=== PATIENT | male | born 1975 | race Caucasian/White ===

== ENCOUNTER → 2017-06-13 15:03 | Outpatient (CLI) | payer OTHER, SELFPAY ==
--- NOTE | 2017-06-13 15:16 | CA_ITS ---
PROCEDURE: 2-D M-mode and color Doppler study INDICATIONS FOR THE TEST: Chest pain COPD Heart MurmurXX Tobacco Smoking Palpitations Fatigue Syncope Edema HypertensionXDiabetes Mellitus Rheumatic Fever SOB SOTOMAYOR ObesityXHyperlipidemia Family History HD Additional History TDS SECONDARY TO OBESITY PATIENT INFORMATION HEIGHT: 74 WEIGHT:360 GENDER: Male B/P:110/70 2-D/M-MODE INTERPRETATION: 2-D MEASUREMENTS OBSERVED VALUES IN CMS Right Ventricular Dimension (RVDd) 3.3 Interventricular Septum (Thickness)(IVsd) 1.3 Left Ventricular Internal Dimensions(LVIDd) 5.8 Left Ventricular Posterior Wall (Thickness)(LVPWd) 1.3 Aortic Root 4.1 Aortic Cusp Separation 2.0 Left Atrial Dimensions (LAD) 4.2 2D 1. Left atrium is mildly enlarged, left ventricle is normal size, mild concentric left ventricular hypertrophy, visually estimated ejection fraction 55% with no obvious regional wall motion abnormality, septum has sigmoid configuration. 2. The right atrium and right ventricle are mildly enlarged with normal contractility. 3. The aortic valve is minimally thickened and fibrosed with restriction the leaflet mobility. 4. Mitral and tricuspid valve leaflets are minimally thickened. 5. The pulmonic valve is poorly visualized. 6. No significant pericardial effusion noted. DOPPLER INTERROGATION: 1. The maximum aortic out flow velocity recorded study 3 m/s, resulting in a mean gradient across valve of 32 mmHg represents mild aortic stenosis, there is no significant aortic insufficiency seen. 2. The mitral inflow velocity within normal range, there is no mitral stenosis, there is mild mitral regurgitation, grade 1 diastolic dysfunction seen without tissue Doppler evidence of raised left atrial pressure. 3. Mild mitral and tricuspid regurgitation, tricuspid and jet velocity insufficient for calculation of the right ventricular systolic pressure. CONCLUSION: 1. Mildly enlarged left atrium, normal left ventricular size, mild concentric left ventricular hypertrophy, visually estimated ejection fraction of 55% with no obvious regional wall motion abnormality, septum has sigmoid configuration, grade 1 diastolic dysfunction seen without tissue Doppler evidence of raised left atrial pressure. 2. Thickened and calcified aortic valve, mean gradient across valve of 22 mmHg represents mild aortic stenosis, there is no significant aortic insufficiency present. 3. Mild mitral and tricuspid regurgitation. 4. No significant pericardial effusion noted.
== END ==
PROVIDERS: Family Provider Family Medicine; PCP Family Medicine; Visit Provider Family Medicine
DX: R01.1 Cardiac murmur, unspecified (principal)
CPT/HCPCS: 93306

== ENCOUNTER 2019-06-28 20:30 | Inpatient (IN) | payer OTHER, SELFPAY ==
[2019-06-28] VITALS (8 sets, daily range): BP systolic 119–165; BP diastolic 57–91; PULSE 73–104; RESP 18; TEMP 36.8; O2SAT 82–99; BMI 44.3
--- NOTE | 2019-06-28 20:26 | ECG_ITS ---
APPROVED REPORT Exam: Resting ECG HR:102 bpm ECG Measurements Heart Rate 102 AXES SC 142 P 39 QRSd 106 QRS 70 QT 340 T 218 QTc 443 <Conclusion> Sinus tachycardia ST & T wave abnormality, consider inferolateral ischemia Abnormal ECG Electronically signed by : José Antonio Pfeiffer, 06/29/2019 06:18:48
--- NOTE | 2019-06-28 20:45 | CT_ITS ---
PROCEDURE: CT CERVICAL SPINE WO CON Patient Age:43Y CLINICAL INDICATION: syncope/fall patient became dizzy and subsequent syncope while taking walk.. Fell. With minor trauma. Minor injuries COMPARISON: No exams were available for comparison TECHNIQUE: Helical axial images obtained with sagittal and coronal reformats. No IV contrast all CT scans at the facility use one or more dose reduction, viz: automated exposure control, ma/kV adjustment per patient size (including targeted exams where dose is matched to indication, i.e. head), or iterative reconstruction technique. FINDINGS: Cervical spine intact with no fracture or subluxation evident. Normal prevertebral soft tissues.. Normal alignment. Facets, neural foramen and vertebral bodies intact and appears satisfactory... Mild facet arthropathy. Minor cervical spondylosis with suggestion scant hypertrophy and disc prominence posterior left aspect of is C6/7. Also scant uncovertebral joint hypertrophy to the right at is T1/2. Borderline mild disc space narrowing at T1-2, T7/T1 Normal C1/C2 relationships.. But there is persistent segmentation at anterior ring of C1 at midline.-. Mild sclerotic margins support this is a long-term feature does not appear recent or acute radiographically. No prevertebral soft tissue swelling here either Marked thyroid enlargement bilaterally warrants further investigation. Both right and left lobe measure over 6 cm length at and extend inferiorly at least to the level of the sternal notch. The right lobe is larger than the left measuring up to 5.8 cm transverse and over 5 cm AP. The trachea shows only scant if any displacement with both lobes enlarged but perhaps or may be some scant displacement of trachea to the left. Scattered small reactive appearing nodes throughout the neck. No other suspicious masses. IMPRESSION: No acute fracture or subluxation cervical spine. Only very scant minor degenerative changes noted * Prominent Goiter: This prominent enlarged thyroid bilaterally warrants follow-up/and further evaluation Dictated by: Ruben North MD 06/29/2019 09:03 Electronically signed by Ruben North MD in [place] 06/29/2019 09:03
--- NOTE | 2019-06-28 20:45 | CT_ITS ---
PROCEDURE: CT HEAD/BRAIN WO CON Patient Age:43Y CLINICAL INDICATION: Dizzy with subsequent syncope/and fall-fell. No evident significant the head trauma COMPARISON: No exams were available for comparison TECHNIQUE: The the the axial images were obtained. All CT scans at the facility use one or more dose reduction, viz: automated exposure control, ma/kV adjustment per patient size (including targeted exams where dose is matched to indication, i.e. head), or iterative reconstruction technique. FINDINGS: No acute intracranial findings. No intracranial hemorrhage. No hydrocephalus.The ventricles and basal cisterns appear clear and satisfactory. No mass or midline shift nor mass effect. No subdural or extra-axial fluid collection is evident. Posterior fossa unremarkable. Skull intact- calvarium unremarkable appearance. Mastoid air cells are well developed and clear.Nomastoid effusions. Middle ear clear. IAC's symmetric. Paranasal sinus findings: Sphenoid sinus: Mucosal thickening throughout sphenoid sinus most evident inferior right sphenoid. Also possible small air-fluid level at the posterior mid sphenoid sinus (axial/27, 26) Ethmoid air cells: Mucosal thickening with opacification of a few air cells bilaterally. Frontal sinus fairly clear with only scant mucosal thickening Maxillary sinuses: Near 2 cm retention cyst floor of left maxillary sinus. scant mucosal thickening otherwise IMPRESSION: No acute intracranial findings. Brain appears satisfactory/unremarkable noncontrast CT Incidental note of paranasal sinus disease as described in text Of mucosal thickening most evident ethmoid and sphenoid sinuses. The mucosal thickening versus possible small small air-fluid level mid sphenoid sinus noted Dictated by: Ruben North MD 06/29/2019 08:38 Electronically signed by Ruben North MD in [place] 06/29/2019 08:38
--- NOTE | 2019-06-28 20:45 | XR_ITS ---
PROCEDURE: XR CHEST 2V Patient Age:43Y CLINICAL HISTORY: syncope short of breath. Nonsmoker. Prominent goiter/thyromegaly noted on cervical spine CT COMPARISON: CXR CHEST(2 VIEWS-NOT PORTABLE) from 02/10/2015 FINDINGS: The lungs appear clear with nothing definitely acute. No focal infiltrate. No, suspicious nodules,. No pleural effusions. But no pneumothorax The heart appears mildly enlarged the. Upper normal pulmonary vascularity No acute bony abnormalities. Prominent enlarged thyroid noted on CT cervical spine today. On this CXR there is perhaps very subtle slight displacement of the trachea to the left as well as perhaps some very slight additional tapering of the trachea, when compared back to 2014 CXR. This enlarged thyroid warrants follow-up/further investigation including thyroid function studies and thyroid ultrasound IMPRESSION: No acute cardiopulmonary findings . Borderline cardiomegaly. Prominent thyromegaly/prominent goiter which very slightly displaces the trachea to the left. Also perhaps subtle tapering of the tracheal when compared to 2014 CXR This goiter was best seen on the CT cervical spine study. Warrants further investigation Dictated by: Ruben North MD 06/29/2019 09:25 Electronically signed by Ruben North MD in [place] 06/29/2019 09:25
--- NOTE | 2019-06-28 20:45 | XR_ITS ---
PROCEDURE: XR PELVIS 1-2V Patient Age:43Y CLINICAL INDICATION: fall dizzy with syncope and fall. Multiple minor injuries. Prominent goiter noted. COMPARISON: ABDPELW/O CT ABD PELVIS W/O CONTRAST from 04/21/2014 CT HEAD/BRAIN WO CON from 06/28/2019 CT CERVICAL SPINE WO CON from 06/28/2019 TECHNIQUE: XR Pelvis AP View FINDINGS: Osseous pelvis intact with no acute findings. No significant change since CT abdomen pelvis April 2014. No fracture or dislocation is evident. Hip joint spaces are fairly well maintained. There may be some hypertrophic ridging at the superior rim of right acetabulum more so than left but this is stable and minimal. No prominent degenerative change. No lytic or blastic change. The SI joints have an unremarkable appearance. Bones well mineralized of moderate to generous stool at throughout visualized colon. Bladder of moderately distended IMPRESSION: No fracture nor acute findings. Osseous pelvis stable and intact. Dictated by: Ruben North MD 06/29/2019 09:19 Electronically signed by Ruben North MD in [place] 06/29/2019 09:19
--- NOTE | 2019-06-28 20:51 | HMH.EDSYNC ---
ED Disposition Clinical Impression: Non-STEMI (non-ST elevated myocardial infarction), VIRA (obstructive sleep apnea) Syncope Qualifiers: Syncope type: unspecified Qualified Code(s): R55 - Syncope and collapse Aortic stenosis Qualifiers: Cardiac valve disease etiology: etiology unspecified Qualified Code(s): I35.0 - Nonrheumatic aortic (valve) stenosis Obesity Qualifiers: Obesity type: due to excess calories Obesity classification: adult class 3 (BMI >= 40) Serious obesity comorbidity presence: with serious comorbidity Body mass index: BMI 40.0-44.9 Qualified Code(s): E66.01 - Morbid (severe) obesity due to excess calories; Z68.41 - Body mass index (BMI) 40.0-44.9, adult Disposition: Admitted As Inpatient Condition on Discharge: Fair Instructions: DI for Syncope in Adults (Fainting), DI for Syncope in Children (Fainting) Referrals: José Antonio Carmona MD [Primary Care Provider] - - Critical Care Critical Care Time: No Attestation: On 06/28/19, the high probability of a clinically significant, sudden or life threatening deterioration of the following system(s) required my full and direct attention, intervention and personal management. The time I documented below is in addition to time spent performing reported procedures but includes the following listed in this critical care notation. Medical Decision Making - Medical Records Medical records reviewed: Yes: I reviewed the patient's medical records. - Martell Inquiry Pt receiving controlled substance: No Vital Signs: 06/28/19 20:32 06/28/19 20:54 06/28/19 21:57 Temperature 98.3 F Temperature Source Oral Pulse Rate [Right] 104 H 85 83 Respiratory Rate 18 18 18 Blood Pressure [Right Arm] 134/85 119/65 135/89 Blood Pressure Mean [Right Arm] 101 83 104 Blood Pressure Source [Right Arm] Automatic Cuff Blood Pressure Position [Right Arm] Supine 02 Sat by Pulse Oximetry 82 L 99 98 Oxygen Delivery Method Room Air Nasal Cannula Nasal Cannula Oxygen Flow Rate (LPM) 4 4 06/28/19 22:17 06/28/19 22:37 06/28/19 22:47 Temperature Temperature Source Pulse Rate [Right] 84 83 82 Respiratory Rate 18 18 18 Blood Pressure [Right Arm] 129/76 119/57 L 165/91 H Blood Pressure Mean [Right Arm] 93 77 115 Blood Pressure Source [Right Arm] Blood Pressure Position [Right Arm] 02 Sat by Pulse Oximetry 99 98 99 Oxygen Delivery Method Nasal Cannula Nasal Cannula Nasal Cannula Oxygen Flow Rate (LPM) 4 4 4 06/28/19 23:03 06/28/19 23:33 06/29/19 00:03 Temperature Temperature Source Pulse Rate [Right] 81 73 73 Respiratory Rate 18 18 18 Blood Pressure [Right Arm] 149/90 H 129/85 120/58 L Blood Pressure Mean [Right Arm] 109 99 78 Blood Pressure Source [Right Arm] Blood Pressure Position [Right Arm] 02 Sat by Pulse Oximetry 96 98 97 Oxygen Delivery Method Nasal Cannula Nasal Cannula Nasal Cannula Oxygen Flow Rate (LPM) 4 4 4 - Lab Data Lab results reviewed: Yes: I reviewed the patient's lab results. Lab Results 06/28/19 20:35: WBC 8.6, RBC 5.19, Hgb 15.2, Hct 44.7, MCV 86.1, MCH 29.2, MCHC 33.9, RDW 14.1, Plt Count 210, MPV 7.5, Neut % (Auto) 74.5, Lymph % (Auto) 16.3, [place] % (Auto) 6.5, Eos % (Auto) 2.1, Baso % (Auto) 0.6, Neut # (Auto) 6.4, Lymph # (Auto) 1.4, [place] # (Auto) 0.6, Eos # (Auto) 0.2, Baso # (Auto) 0.1, ESR 15 06/28/19 20:35: Sodium 136, Potassium 4.3, Chloride 99, Carbon Dioxide 29, Anion Gap 12.3, BUN 21 H, Creatinine 1.10, Estimated Creat Clear 102, Estimated GFR 73, Est GFR ( Amer) 89, Glucose 137 H, Calcium 10.3 H, Total Bilirubin 0.3, AST 63 H, ALT 61, Alkaline Phosphatase 69, Troponin I 0.31 H, C-Reactive Protein 13.1 H, Total Protein 8.3 H, Albumin 4.8, Globulin 3.5 H, Albumin/Globulin Ratio 1.4 06/28/19 20:53: Specimen Source L radial, O2 % 2lpm, ABG pH 7.42, ABG pCO2 40.3, ABG pO2 102.8 H, ABG HCO3 25.6, ABG Total CO2 26.8, ABG O2 Saturation 98, ABG Base Excess 1.2, Vinayak Test Acceptable Result diagrams: 06/28/19 2
--- NOTE | 2019-06-28 20:53 | PC.NURSE ---
notified RT of ABG order
[2019-06-28 20:56] LABS: Basophils # 0.1 K/mm3 (0-0.2); Basophils % 0.6 % (0.1-2.0); Eosinophils # 0.2 K/mm3 (0.0-0.4); Eosinophils % 2.1 % (0.1-12.0); Hematocrit 44.7 % (42.0-52.0); Hemoglobin 15.2 g/dL (14.1-18.0); Lymphocytes # 1.4 K/mm3 (0.7-4.5); Lymphocytes % 16.3 % (10-50); Mean Corpuscular HGB Conc 33.9 g/dL (31.8-35.4); Mean Corpuscular Hemoglobin 29.2 pg (27.0-31.2); Mean Corpuscular Volume 86.1 fl (80-94); Mean Platelet Volume 7.5 fl (7.4-10.4); Monocytes # 0.6 K/mm3 (0.1-1.0); Monocytes % 6.5 % (1.7-9.3); Neutrophils # 6.4 K/mm3 (1.8-7.8); Neutrophils % 74.5 % (37.0-80.0); Platelet Count 210 K/mm3 (142-424); Red Blood Count 5.19 M/mm3 (4.60-6.20); Red Cell Distribution Width 14.1 % (11.5-17.5); White Blood Count 8.6 K/mm3 (4.8-10.8)
[2019-06-28 21:02] LABS: Alanine Aminotransferase 61 U/L (12-78); Albumin Level 4.8 g/dl (3.5-5.0); Albumin/Globulin Ratio 1.4 (1.1-1.8); Alkaline Phosphatase 69 U/L (38-126); Anion Gap 12.3 mEq/L (5-15); Aspartate Amino Transferase 63 U/L (17-59); Bilirubin,Total 0.3 mg/dl (0.2-1.3); Blood Urea Nitrogen 21 mg/dl (9-20); Calcium 10.3 mg/dl (8.4-10.2); Carbon Dioxide 29 mmol/L (22.0-30.0); Chloride 99 mmol/L (98-107); Creatinine Clearance Estimated 102 mL/min (50-200); Estimated Glomerular Filt Rate 73 ml/min (>60); GFR (African American) 89 ML/MIN (>60); Globulin 3.5 g/dL (1.3-3.2); Glucose 137 mg/dl (74-100); Potassium 4.3 mmoL/L (3.5-5.1); Sodium 136 mmol/L (136-145); Total Protein,Serum 8.3 g/dl (6.3-8.2)
[2019-06-28 21:07] LABS: C-Reactive Protein 13.1 mg/L (0-4)
[2019-06-28 21:12] LABS: ABG Base Excess 1.2 mmol/L (-2.4-2.3); ABG HCO3 25.6 mmhg (22.0-26.0); ABG Oxygen Saturation 98 % (90-100); ABG PCO2 40.3 mmhg (35.0-45.0); ABG PH 7.42 mmol/L (7.35-7.45); ABG PO2 102.8 mmhg (80-100); ABG TCO2 26.8 mmhg (23-27)
--- NOTE | 2019-06-28 21:14 | PC.NURSE ---
Dr Juárez spoke with Dr Truong about pt's EKG and symptoms
[2019-06-28 21:16] LABS: Troponin I 0.31 ng/ml (0.00-0.034)
[2019-06-28 21:18] LABS: Allen's Test ACCEPTABLE; Oxygen 2LPM %; Source L RADIAL
--- NOTE | 2019-06-28 21:20 | CA_ITS ---
APPROVED REPORT EXAM: Comprehensive 2D, Doppler, and color-flow Echocardiogram Unit Assistant: Smitha Avila RT(R) Ht: 6 ft 2 in Wt: 340lbs BSA: 2.72 BP: 126/78 mmHg Indications: syncopal episode, hx of , murmur, palpitations, SOB, obesity, family history of HD 2D Dimensions LVOT 1.78 cm (M/F) 1.5-2.5 M-Mode Dimensions RVDd 2.31 cm (0.9-2.6) LVDd 5.48 cm (3.5-5.7) LVDs 4.40 cm (3.5-5.7) IVSd 0.96 cm (0.6-1.1) PWd 1.29 cm (0.6-1.1) EF (Teich) 40.00% FS 19.70% EDV (Teich) 146.20 mL ESV (Teich) 87.70 mL LV Diastology E/A Ratio 1.40 Aortic Valve LVOT Max 111.00 (70-110 cm/s) LVOT VTI 23.01 cm Mitral Valve MV A Velocity 64.00 (40-130 cm/s) Left Ventricle Left atrium is mildly enlarged, left ventricle is normal size, mild concentric left ventricular hypertrophy, visually estimated ejection fraction 55% with no regional wall motion abnormality. Diastolic parameters are inconclusive. Right Ventricle Right atrium and right ventricular normal size and contractility. Aortic Valve Aortic valve morphology is not well seen, there is calcification of the aortic valve is present, with severe restriction in the leaflet mobility. Morphologically there is severe aortic stenosis, however the mean gradient and aortic outflow velocity is not accurately recorded to calculate aortic valve area accurately. If clinically indicated transesophageal echocardiogram for cardiac cath is recommended. Mitral Valve Mitral valve leaflets are minimally thickened, there is mild mitral calcification, leaflets are not well visualized. There is mild mitral regurgitation. Tricuspid Valve Tricuspid valve is grossly normal, there is mild tricuspid regurgitation. Pulmonic Valve Pulmonic valve is poorly visualized. Great Vessels Aortic root is normal size. Pericardium No significant pericardial effusion noted. Conclusion 1. Technically very difficult study a repeat study due to patient's factors and poor acoustic windows. 2. Mildly enlarged left atrium, normal left ventricular size, mild concentric left ventricular hypertrophy, visually estimated ejection fraction 55% with no regional wall motion abnormality. Diastolic parameters are inconclusive. 3. Morphologically there is severe aortic stenosis as described above, if clinically indicated a transesophageal echocardiogram or cardiac cath is recommended. 4. No significant pericardial effusion noted. Electronically signed by : Eusebio Cordova, 07/01/2019 19:57:06
[2019-06-28 21:22] LABS: Erythrocyte Sedimentation Rate 15 mm/hr (0-15)
--- NOTE | 2019-06-28 21:32 | PC.NURSE ---
pt back from RAD
--- NOTE | 2019-06-28 23:15 | PC.NURSE ---
echo at bedside
[2019-06-29] VITALS (15 sets, daily range): BP systolic 105–148; BP diastolic 58–84; PULSE 60–85; RESP 16–24; TEMP 36.6–37.1; O2SAT 2–100; BMI 44.1
--- NOTE | 2019-06-29 00:14 | PC.NURSE ---
consulting Dr. Pfeiffer
--- NOTE | 2019-06-29 00:44 | PC.NURSE ---
notified of critical trop.
[2019-06-29 00:45] LABS: Troponin I 0.87 ng/ml (0.00-0.034)
[2019-06-29 03:21] LABS: Basophils # 0.1 K/mm3 (0-0.2); Basophils % 0.9 % (0.1-2.0); Eosinophils # 0.2 K/mm3 (0.0-0.4); Eosinophils % 2.8 % (0.1-12.0); Hemoglobin 14.9 g/dL (14.1-18.0); Lymphocytes # 1.4 K/mm3 (0.7-4.5); Lymphocytes % 16.2 % (10-50); Mean Corpuscular HGB Conc 33.9 g/dL (31.8-35.4); Mean Corpuscular Hemoglobin 29.2 pg (27.0-31.2); Mean Platelet Volume 7.3 fl (7.4-10.4); Monocytes # 0.6 K/mm3 (0.1-1.0); Monocytes % 6.7 % (1.7-9.3); Neutrophils # 6.2 K/mm3 (1.8-7.8); Neutrophils % 73.4 % (37.0-80.0); Platelet Count 203 K/mm3 (142-424); Red Blood Count 5.11 M/mm3 (4.60-6.20); Red Cell Distribution Width 14.1 % (11.5-17.5); White Blood Count 8.5 K/mm3 (4.8-10.8)
[2019-06-29 03:29] LABS: Anion Gap 11.2 mEq/L (5-15); Blood Urea Nitrogen 17 mg/dl (9-20); Calcium 9.9 mg/dl (8.4-10.2); Carbon Dioxide 29 mmol/L (22.0-30.0); Chloride 100 mmol/L (98-107); Chol/HDL Ratio 5.1 (1-3.5); Cholesterol 189 mg/dl (140-200); Creatinine Clearance Estimated 124 mL/min (50-200); Estimated Glomerular Filt Rate 93 ml/min (>60); GFR (African American) 112 ML/MIN (>60); Glucose 141 mg/dl (74-100); HDL Cholesterol 37 mg/dl (40-60); Potassium 4.2 mmoL/L (3.5-5.1); Prothrombin Time 11.4 seconds (9.4-11.8); Sodium 136 mmol/L (136-145); Triglycerides 131 mg/dl (30-150); VLDL Cholesterol 26 mg/dL (0-40)
[2019-06-29 03:40] LABS: Direct LDL Cholesterol 144.39 mg/dL (100-129)
[2019-06-29 03:45] LABS: Troponin I 0.68 ng/ml (0.00-0.034)
--- NOTE | 2019-06-29 03:53 | PC.NURSE ---
Pt has ambulated to the BR 1x this shift with staff SBA and pt tolerated well. Pt has denied any pain, N/V/D, or dyspnea t/o shift. Pt continues on 2L per NC while awake and CPAP for sleep and tolerating well, sats 96-98%. Lungs CTA, although diminished bases and left anterior. ABD is soft and non-tender with active BS. Pt has been NPO since 12am per order. NSR with occasional PACs and ST depression noted on tele. Systolic murmur noted on auscultation. VSS, call light within reach, will continue to monitor.
--- NOTE | 2019-06-29 04:42 | PC.NURSE ---
Lab notified this RN @ [id number] of critical troponin of 0.68. Notified Dr. Pfeiffer @ [phone], no new orders at this time.
--- NOTE | 2019-06-29 06:37 | PC.NURSE ---
Pt has showered and bee surgically clipped in preparation for possible cardiac cath. Per ER report and per pt & his , Dr. Juárez stated Dr. Truong wanted pt to have a heart cath today.
--- NOTE | 2019-06-29 08:16 | HMH.HP ---
*Admission Date: 06/29/19 *Chief complaint: Syncope, shortness of breath *History of present illness: 43-year-old male with history of mild aortic stenosis on echocardiogram in June 2017 as well as hypertension presented to the emergency department after syncopal event. Patient was walking with his family when it began raining. Patient decided to run back to his house. Patient is morbidly obese and became short of breath while running. He also developed a fluttering sensation in his chest. He sat down to rest. Once he felt like he was catching his breath he stood up from a seated position and passed out. Patient does not know how long he was unconscious. He remembers awakening and finding himself on the ground. It was at this time that EMS was called and patient was brought to the emergency department. In the emergency department patient underwent work-up. EKG showed some inverted T waves in lateral leads. First troponin was indeterminate but second troponin was abnormal. Patient had an echocardiogram performed in the emergency department which is been interpreted as showing severe aortic stenosis. ER physician spoke with Dr. Truong who recommended patient be admitted to the hospital for observation and cardiac catheterization this morning. At present patient denies shortness of breath or chest pain. He denies shortness of breath on exertion in the hospital. He does report over the last several weeks he is noticed a decline in his functional capacity and has been getting short of breath easier when ambulating distances or up and down stairs. He has also been experiencing this intermittent fluttering sensation in his chest but denies chest tightness or chest pain. [facility] History I have reviewed the patient's past medical history: Yes Medical History: Reports:: Hypertension, Valvular Heart Disease (Aortic stenosis) Denies:: Cancer, Diabetes Mellitus Type 1, Diabetes Mellitus Type 2 *Have you ever received a pneumonia vaccine?: No *Have you received a flu vaccine this season?: Yes Comment:: Obstructive sleep apnea Other Surgeries: Yes: Colon Resection, Other Amputation: No Fractures: No - *Social History Educational Level: Completed High School Smoking Status: Former smoker #Yrs smoked (if former smoker): 5 Alcohol Intake: current Alcohol Intake Frequency:: a few times a month *Occupational Status:: employed Housing: house Household Members: spouse *Travel in the last 8 weeks: None Family Hx:: Coronary Artery Disease, Diabetes, Hypertension Review of Systems - Review of Systems Review of systems:: pertinent systems reviewed and negative unless documented below - Constitutional Denies body ache(s), Denies chills, Denies fever(s), Denies headache(s), Denies night sweats - *Cardiovascular Reports shortness of breath with activity, Denies chest pain, Denies chest pain at rest, Denies chest pain with activity, Denies excessive sweating, Denies shortness of breath when lying down - *Respiratory Reports shortness of breath with activity, Denies change in phlegm color, Denies chest congestion, Denies cough, Denies excessive phlegm production - *Neurologic Reports seizure-like activity, Reports fainting, Denies confusion, Denies localized weakness Meds Home Medications Medication Instructions Recorded Confirmed Type lisinopriL [Lisinopril 20mg Tab] 20 mg PO DAILY 06/28/19 06/29/19 History Allergies Allergy/AdvReac Type Severity Reaction Status Date / Time No Known Allergies Allergy Unverified 01/31/17 14:32 Exam Vital signs and Labs for Last 24 Hours: Temp Pulse Resp BP Pulse Ox 98.0 F 60 16 123/76 100 06/29/19 03:44 06/29/19 04:00 06/29/19 03:44 06/29/19 03:44 06/29/19 03:44 Laboratory Results - last 24 hr 06/28/19 20:35: WBC 8.6, RBC 5.19, Hgb 15.2, Hct 44.7, MCV 86.1, MCH 29.2, MCHC 33.9, RDW 14.1, Plt Count 210, MPV 7.5, Neut % (Auto) 74.5, Lymph % (Auto) 16.3, [place] % (Auto) 6.5, Eos % (Aut
--- NOTE | 2019-06-29 08:33 | PC.NURSE ---
Pt took o2 off for shower, room air sat obtained and was 95%. Pt was reassessed 15 min later, was found asleep in chair and room air sat was 89% that qumahendray raised to 95% while awae. Pt has VIRA and was not using his CPAP d/t sitting in the watching TV and just fell asleep
--- NOTE | 2019-06-29 08:43 | PC.NURSE ---
Spoke to admitting Dr. Pfeiffer who states Dr. Juárez informed him Dr. Quinn would be performing a heart cath today. Spoke to Dr. Quinn at this time. He states he is oncall for ER stemi only. Then paged Dr. Truong who requested to speak with pts primary nurse.
--- NOTE | 2019-06-29 11:39 | HMH.PHAVTE ---
[facility] Pharmacy VTE Monitoring - Patient Demographics Admission date: 06/29/19 Report Date: 06/29/19 Time: 11:40 Allergies/Adverse Reactions: Patient Allergies No Known Allergies Allergy (Unverified 01/31/17 14:32) Height: 1.88 m Weight: 156.234 kg Patient Problems: Current Active Problems Syncope (Acute) Non-STEMI (non-ST elevated myocardial infarction) (Acute) Aortic stenosis (Acute) Obesity (Acute) VIRA (obstructive sleep apnea) (Acute) Essential hypertension (Acute) - VTE Risk Labs: VTE Related Lab Results Hgb 14.9 g/dL (14.1-18.0) 06/29/19 03:15 Hct 44.0 % (42.0-52.0) 06/29/19 03:15 Plt Count 203 K/mm3 (142-424) 06/29/19 03:15 PT 11.4 seconds (9.4-11.8) 06/29/19 03:15 INR 1.10 (0.9-1.1) 06/29/19 03:15 BUN 17 mg/dl (9-20) 06/29/19 03:15 Creatinine 0.90 mg/dl (0.66-1.25) 06/29/19 03:15 Estimated Creat Clear 124 mL/min (50-200) 06/29/19 03:15 VTE Score: 5 VTE Risk Level: Low Risk - Prophylaxis VTE Prophylaxis Ordered?: Yes Types of VTE Prophylaxis: Pharmacological Pharmacologic Type: Enoxaparin
--- NOTE | 2019-06-29 16:22 | PC.NURSE ---
Pt has been pleasant and cooperative this shift with no complaints of pain or SOA. A&O X4. Pt has been up to the chair for the majority of this shift. Pt ambulates throughout the room and to the bathroom independently. Pt is currently on RA with sats >94%. IVF DC'd this shift and 20 G peripheral IV in the RT AC is SL. Diet changed to Cardiac. Telemetry reveals NSR with ST Depression. Lungs CTA. VSS. Call light within reach. Will continue to monitor.
[2019-06-30] VITALS (9 sets, daily range): BP systolic 98–114; BP diastolic 58–69; PULSE 60–79; RESP 16–24; TEMP 36.6–37.1; O2SAT 96–98; BMI 44.5
--- NOTE | 2019-06-30 03:44 | PC.NURSE ---
Pt has had no complaints reported to staff this shift. HE has ambulated in hallway independently w/ mask in place. Tolerated well. Voiding w/o issues. Remains in RA w/ sats in upper 90's. CPAP in place when sleeping. Tele monitor showing NSR w/ ST depression, no change from previous readings. VSS.
--- NOTE | 2019-06-30 08:01 | HMH.ACPN2 ---
Internal Medicine - PN: Subj *Date: 06/30/19 *Time: 08:02 Interval history: Patient has no complaints this morning. He denies chest pain or shortness of breath with exertion here in the hospital. Arrangements have been made for patient to have left heart catheterization tomorrow to assess coronary arteries and his aortic valve. Exam Vital signs and Labs for Last 24 Hours: Temp Pulse Resp BP Pulse Ox 98.2 F 67 18 98/61 L 96 06/30/19 04:00 06/30/19 04:00 06/29/19 23:37 06/30/19 04:00 06/30/19 04:00 I & O for Last 24 hours: Intake & Output 06/27/19 06/28/19 06/29/19 06/30/19 11:59 11:59 11:59 11:59 Intake Total 2383 / 2383 1080 / 1080 Output Total 900 / 900 Balance 1483 / 1483 1080 / 1080 Weight 344 lb 7 oz 347 lb 4 oz - Constitutional no acute distress Assessment and Plan (1) Syncope Current visit: Yes Status: Acute Qualifiers: Syncope type: unspecified Qualified Code(s): R55 - Syncope and collapse Category: Medical Code(s): R55 - Syncope and collapse (2) Essential hypertension Current visit: Yes Status: Acute Category: Medical Code(s): I10 - Essential (primary) hypertension (3) Aortic stenosis Current visit: Yes Status: Acute Qualifiers: Cardiac valve disease etiology: etiology unspecified Qualified Code(s): I35.0 - Nonrheumatic aortic (valve) stenosis Category: Medical Code(s): I35.0 - Nonrheumatic aortic (valve) stenosis (4) Non-STEMI (non-ST elevated myocardial infarction) Current visit: Yes Status: Acute Category: Medical Code(s): I21.4 - Non-ST elevation (NSTEMI) myocardial infarction (5) VIRA (obstructive sleep apnea) Current visit: Yes Status: Acute Category: Medical Code(s): G47.33 - Obstructive sleep apnea (adult) (pediatric) (6) Obesity Current visit: Yes Status: Acute Qualifiers: Obesity type: due to excess calories Obesity classification: adult class 3 (BMI >= 40) Serious obesity comorbidity presence: with serious comorbidity Body mass index: BMI 40.0-44.9 Qualified Code(s): E66.01 - Morbid (severe) obesity due to excess calories; Z68.41 - Body mass index (BMI) 40.0-44.9, adult Category: Medical Code(s): E66.9 - Obesity, unspecified - Assessment and plan all Dx Assessment and Plan for all problems:: 1. Continue telemetry monitoring. Continue aspirin and Lovenox. Left heart cath tomorrow
--- NOTE | 2019-06-30 18:34 | PC.NURSE ---
Pt has been pleasant and cooperative this shift. A&O X4. No complaints of pain or SOA. Pt ambulates independently throughout the room and to the bathroom. 20 G peripheral IV in place to the RT AC is patent and SL. Telemetry reveals NSR with ST depression. Lungs CTA. VSS. Call light within reach. Will continue to monitor.
[2019-07-01] VITALS (21 sets, daily range): BP systolic 98–132; BP diastolic 54–79; PULSE 60–86; RESP 12–20; TEMP 36.3–36.8; O2SAT 91–98; BMI 44.7
--- NOTE | 2019-07-01 | IR_ITS ---
APPROVED REPORT Patient Location: Inpatient Purchasing Coordinator: HENRIQUE An RT (R) PROCEDURES Selective coronary angiogram INDICATION Severe aortic stenosis, Acute non-ST elevation myocardial infarction, Preoperative evaluation for aortic valve replacement Informed consent was obtained prior to the procedure. COMPLICATIONS NONE Estimated Blood Loss: LESS THAN 10 ML TECHNIQUE One percent lidocaine used to anesthetize the right anterior aspect of the wrist. The right radial artery was accessed via the Seldinger technique. A 6 [place] sheath was placed in the right radial artery. 2.5 mg of verapamil, 800 mcg of nitroglycerin, 1mg Lidocaine and 5000 U Heparin were given through the arterial sheath. The trap catheter was also used to perform left heart catheterization, left ventriculogram and selective coronary angiogram. At the end of the procedure the sheath was removed good hemostasis was achieved using Traclet band, patient was transferred to the postop holding area in stable condition. ANGIOGRAPHIC RESULTS The left main artery Normal The left anterior descending artery Normal The circumflex artery Small normal The right coronary artery Large dominant normal The JARRETT ventriculogram reveals Not obtained The left ventricular end-diastolic pressure Not measured IMPRESSION Normal coronary arteries in the setting of known severe aortic stenosis PLAN 1. Transfer to [facility] for either surgical or percutaneous aortic valve replacement, to be decided by the physicians at [facility] 2. Patient requires transfer during this admission Electronically signed by : Kirill Truong, 07/01/2019 10:22:27
--- NOTE | 2019-07-01 05:26 | PC.NURSE ---
No changes over night. Pt trimmed and showered for possible heart cath in am. No complaints reported this shift. Tele reads NSR w/ ST depression. Pt is independent w/ ADL's ad ambulates often in room. Home CPAP worn w/ sleeping. Pt has been NPO since 0000. Will continue to monitor.
--- NOTE | 2019-07-01 07:12 | HMH.ACPN2 ---
Internal Medicine - PN: Subj *Date: 07/01/19 *Time: 07:12 Interval history: Patient has no complaints this morning. He denies any further chest pain, dyspnea at rest, or dyspnea on exertion. Exam Vital signs and Labs for Last 24 Hours: Temp Pulse Resp BP Pulse Ox 97.8 F 63 20 105/75 L 97 07/01/19 04:00 07/01/19 04:00 07/01/19 04:00 07/01/19 04:00 07/01/19 04:00 I & O for Last 24 hours: Intake & Output 06/28/19 06/29/19 06/30/19 07/01/19 11:59 11:59 11:59 11:59 Intake Total 2383 / 2383 1440 / 1440 240 / 240 Output Total 900 / 900 Balance 1483 / 1483 1440 / 1440 240 / 240 Weight 344 lb 7 oz 347 lb 4 oz 348 lb 8 oz Narrative: Patient is in no distress. Lungs remain clear. Heart has a regular rate and rhythm with systolic murmur at the right second costal space that radiates to the carotids. Assessment and Plan (1) Syncope Current visit: Yes Status: Acute Qualifiers: Syncope type: unspecified Qualified Code(s): R55 - Syncope and collapse Category: Medical Code(s): R55 - Syncope and collapse (2) Essential hypertension Current visit: Yes Status: Acute Category: Medical Code(s): I10 - Essential (primary) hypertension (3) Aortic stenosis Current visit: Yes Status: Acute Qualifiers: Cardiac valve disease etiology: etiology unspecified Qualified Code(s): I35.0 - Nonrheumatic aortic (valve) stenosis Category: Medical Code(s): I35.0 - Nonrheumatic aortic (valve) stenosis (4) Non-STEMI (non-ST elevated myocardial infarction) Current visit: Yes Status: Acute Category: Medical Code(s): I21.4 - Non-ST elevation (NSTEMI) myocardial infarction (5) VIRA (obstructive sleep apnea) Current visit: Yes Status: Acute Category: Medical Code(s): G47.33 - Obstructive sleep apnea (adult) (pediatric) (6) Obesity Current visit: Yes Status: Acute Qualifiers: Obesity type: due to excess calories Obesity classification: adult class 3 (BMI >= 40) Serious obesity comorbidity presence: with serious comorbidity Body mass index: BMI 40.0-44.9 Qualified Code(s): E66.01 - Morbid (severe) obesity due to excess calories; Z68.41 - Body mass index (BMI) 40.0-44.9, adult Category: Medical Code(s): E66.9 - Obesity, unspecified - Assessment and plan all Dx Assessment and Plan for all problems:: 1. Left heart catheterization today
--- NOTE | 2019-07-01 07:16 | HMH.CNCARD ---
History of Present Illness Consult date: 07/01/19 Requesting physician: José Antonio Carmona Chief complaint: syncope Additional Medical History:: 1. Hypertension 2. Obstructive sleep apnea, treated with CPAP for 3 to 4 years 3. Obesity 4. History of mild aortic stenosis by echocardiogram 03/2017 with normal ejection fraction. 5. Family history of coronary artery disease and arrhythmias in parents History of present illness: 43-year-old white male with history of hypertension, VIRA and mild aortic stenosis by echocardiogram in 2018 presented to the emergency department for evaluation of shortness of breath, palpitations and syncopal episode. While out walking with his family, he began to rain and due to him being close to home he decided to run home. Patient noticed palpitations and shortness of breath and sat down on his porch for a few minutes together his breath. He continued to be short of breath with rapid heart rates and after talking with his decided to come to the emergency department. After standing up to walk to the car patient walks only a few feet before leaning up against a post and then passing out. Patient woke up on the ground. He denied any chest pain, pressure or tightness. EMS was called to transport the patient to the emergency department for further evaluation. EKG in the ER showed sinus rhythm at a rate of [address] segment depression. Echocardiogram performed in the ER appeared to show evidence of severe aortic stenosis. Patient was kept for further evaluation. Initial troponin indeterminate but subsequent troponins have been elevated. Patient denies any chest pain, pressure or tightness during his stay and no further episodes of syncope. Dr. Truong was contacted and recommended admission with further evaluation. Patient does relate some increasing shortness of breath with exertion over the last several months without change in weight. He does not smoke and is not diabetic. There is a family history of heart disease in his mother with history of stents in his father with history of arrhythmia. Cardiology consulted for evaluation recommendations. [facility] History Medical History: Reports:: Hypertension, Valvular Heart Disease (Aortic stenosis) Denies:: Cancer, Diabetes Mellitus Type 1, Diabetes Mellitus Type 2 *Have you ever received a pneumonia vaccine?: No *Have you received a flu vaccine this season?: Yes Other Surgeries: Yes: Colon Resection, Other Amputation: No Fractures: No - *Social History Educational Level: Completed High School Smoking Status: Former smoker #Yrs smoked (if former smoker): 5 Alcohol Intake: current Alcohol Intake Frequency:: a few times a month *Occupational Status:: employed Housing: house Household Members: spouse *Travel in the last 8 weeks: None Family Hx:: Coronary Artery Disease, Diabetes, Hypertension Meds Home Medications Medication Instructions Recorded Confirmed Type lisinopriL [Lisinopril 20mg Tab] 20 mg PO DAILY 06/28/19 06/29/19 History Allergies Allergy/AdvReac Type Severity Reaction Status Date / Time No Known Allergies Allergy Unverified 01/31/17 14:32 Review of Systems - Review of Systems Review of systems:: pertinent systems reviewed and negative unless documented below - *Cardiovascular Reports shortness of breath with activity, Denies chest pain - *Respiratory Reports shortness of breath with activity, Denies cough - *Gastrointestinal Denies loose stools, Denies nausea, Denies vomiting - *Genitourinary Denies blood in urine - *Musculoskeletal Denies joint pain, Denies back pain - *Neurologic Reports seizure-like activity, Reports fainting, Denies confusion, Denies localized weakness, Denies headache(s) Exam Vital signs and Labs for Last 24 Hours: Temp Pulse Resp BP Pulse Ox 97.8 F 63 20 105/75 L 97 07/01/19 04:00 07/01/19 04:00 07/01/19 04:00 07/01/19 04:00 07/01/19 04:00 I &
--- NOTE | 2019-07-01 07:23 | ECG_ITS ---
APPROVED REPORT Exam: Resting ECG HR:70 bpm ECG Measurements Heart Rate 70 AXES DE 164 P 57 QRSd 108 QRS 84 QT 408 T 252 QTc 440 <Conclusion> Normal sinus rhythm ST & T wave abnormality, consider inferolateral ischemia Abnormal ECG Electronically signed by : José Antonio Pfeiffer, 07/01/2019 14:14:52
--- NOTE | 2019-07-01 10:22 | HMH.DCSUM ---
General - General Admission date:: 06/29/19 Discharge date: 07/01/19 HPI HPI: 43-year-old male with history of mild aortic stenosis on echocardiogram in June 2017 as well as hypertension presented to the emergency department after syncopal event. Patient was walking with his family when it began raining. Patient decided to run back to his house. Patient is morbidly obese and became short of breath while running. He also developed a fluttering sensation in his chest. He sat down to rest. Once he felt like he was catching his breath he stood up from a seated position and passed out. Patient does not know how long he was unconscious. He remembers awakening and finding himself on the ground. It was at this time that EMS was called and patient was brought to the emergency department. In the emergency department patient underwent work-up. EKG showed some inverted T waves in lateral leads. First troponin was indeterminate but second troponin was abnormal. Patient had an echocardiogram performed in the emergency department which is been interpreted as showing severe aortic stenosis. ER physician spoke with Dr. Truong who recommended patient be admitted to the hospital for observation and cardiac catheterization this morning. At present patient denies shortness of breath or chest pain. He denies shortness of breath on exertion in the hospital. He does report over the last several weeks he is noticed a decline in his functional capacity and has been getting short of breath easier when ambulating distances or up and down stairs. He has also been experiencing this intermittent fluttering sensation in his chest but denies chest tightness or chest pain. Hospital Course Hospital Course: Patient was admitted for further cardiac evaluation to include a LHC. On 06/30 patient underwent LHC which revealed normal coronary arteries and confirmed severe aortic stenosis. spoke with DR. Tobin of the [facility] surgery service and the patietn was accepted for transfer. Dishcarge condition is stable Objective Vital signs: Temp Pulse Resp BP Pulse Ox 97.7 F 79 18 132/71 93 L 07/01/19 07:50 07/01/19 10:20 07/01/19 10:20 07/01/19 10:20 07/01/19 10:20 DS: Diagnosis - Discharge Diagnosis (1) Syncope Status: Acute (2) Essential hypertension Status: Acute (3) Aortic stenosis Status: Acute (4) Non-STEMI (non-ST elevated myocardial infarction) Status: Acute (5) VIRA (obstructive sleep apnea) Status: Acute (6) Obesity Status: Acute Discharge Plan - Patient Discharge Instructions ACTIVITY: Continue current activity DIET: continue same diet Patient Instructions: DI for Syncope in Adults (Fainting), DI for Heart Attack, Sleep Apnea - Follow up Plan Home Medications: Home Medications Medication Instructions Recorded Confirmed Type lisinopriL [Lisinopril 20mg Tab] 20 mg PO DAILY 06/28/19 06/29/19 History Prescriptions/Medication Reconciliation: Continued lisinopriL [Lisinopril 20mg Tab] 20 mg PO DAILY - Problem Reconciliation Problems Reviewed?: Yes
== END 2019-07-01 16:15 | disposition short-term general hospital (02) | DRG 281 ==
LOC: ER 06-29 00:26 → 2ND 06-29 10:25
PROVIDERS: Internal Medicine; Admitting Provider Internal Medicine Adolescent Medicine; Emergency Provider Emergency Medicine; PCP Family Medicine; Visit Provider Family Medicine
PROC: 4A023N7 Measurement of Cardiac Sampling and Pressure, Left Heart, Percutaneous Approach (ICD-10-PCS; principal; 2019-07-01 11:00)
DX: I35.0 Nonrheumatic aortic (valve) stenosis (principal); I21.4 Non-ST elevation (NSTEMI) myocardial infarction; Z68.41 Body mass index [BMI] 40.0-44.9, adult; I10 Essential (primary) hypertension; E66.01 Morbid (severe) obesity due to excess calories; Z87.891 Personal history of nicotine dependence
CPT/HCPCS: 36415; 70450; 71046; 72125; 72170; 80048; 80053; 80061; 82803; 83735; 84484; 85025; 85610; 85651; 86140; 93005; 93306; 93458; 96365; 99152; 99285; C1725; C1760; C1769; J1644; Q9967

== ENCOUNTER 2019-07-14 11:41 | Emergency (ER) | payer OTHER, SELFPAY ==
[2019-07-14 11:41] VITALS: BP 118/78; PULSE 150; RESP 22; TEMP 36.9; O2SAT 99; BMI 44.0
--- NOTE | 2019-07-14 11:41 | ECG_ITS ---
APPROVED REPORT Exam: Resting ECG HR:149 bpm ECG Measurements Heart Rate 149 AXES CO 124 P 11 QRSd 94 QRS 58 QT 250 T 221 QTc 393 <Conclusion> Sinus tachycardia ST & T wave abnormality, consider inferolateral ischemia Abnormal ECG Electronically signed by : José Antonio Pfeiffer, 07/15/2019 07:15:32
--- NOTE | 2019-07-14 12:01 | CT_ITS ---
PROCEDURE: CT ANGIO CHEST CLINCIAL INDICATION: RECENT HEART SURGERY, SOA, ELEVATED HR Shortness of breath, elevated heart rate COMPARISON: XR CHEST 2V from 07/14/2019 TECHNIQUE: IV Contrast: 70ML OPTIRAY 350 Axial images obtained with sagittal and coronal reformats. All CT scans at the facility use one or more dose reduction, viz: automated exposure control, ma/kV adjustment per patient size (including targeted exams where dose is matched to indication, i.e. head), or iterative reconstruction technique. FINDINGS: There is diffuse enlargement of the thyroid gland on both sides with mild substernal extension on the right. There is narrowing of the trachea due to the enlarged thyroid gland. There are post median sternotomy changes with increased density within the anterior mediastinal fat which may be seen with post sternotomy changes. Increased soft tissue density is present in the retrosternal region suggesting small hematoma. This extends to the level just below the xiphoid and to the left of the the subxiphoid region. There is moderate thickening of the pericardium measuring up to 2.4 cm consistent with pericardial effusion. Aortic valve is present.. No evidence of central pulmonary embolus. The peripheral pulmonary arteries are not well opacified. No obvious emboli are evident. There is small size of the left main pulmonary artery compared to the right side of questionable clinical significance. There is no evidence of aortic aneurysm or dissection There are small bilateral pleural effusions left larger than right. Moderate atelectatic changes/volume loss noted in the left lower lobe. There are mild atelectatic changes in the right lower lobe. The upper lobes are clear. No evidence of pneumothorax. There are degenerative changes in the thoracic spine with kyphosis of the lower thoracic spine. No evidence of sternal dehiscence. There is bilateral gynecomastia and there is mild stranding of the presternal fat from the recent surgery. Upper abdominal images show cholelithiasis. IMPRESSION: 1. No evidence of pulmonary embolus, aortic aneurysm or dissection. 2. Status post aortic valve replacement. There is a moderate-sized pericardial effusion 3. Post median sternotomy changes with some increased density in the anterior mediastinum and in the retrosternal extending to the sub xiphoid area consistent with small hematoma. 4. Bilateral pleural effusions and bibasilar volume loss left greater than right 5. Cholelithiasis Dictated by: Vinayak Bradford MD 07/14/2019 13:04 Electronically signed by Vinayak Bradford MD in [facility] 07/14/2019 13:04
--- NOTE | 2019-07-14 12:01 | XR_ITS ---
PROCEDURE: XR CHEST 2V CLINICAL HISTORY: RECENT HEART SURGERY, ELEVATED HR, SOA COMPARISON: CXR CHEST(2 VIEWS-NOT PORTABLE) from 02/10/2015 XR CHEST 2V from 06/28/2019 FINDINGS: Mild cardiomegaly without failure. Prior median sternotomy. Prior AVR Small bilateral pleural effusions with mild left basilar airspace disease. No evidence of pneumothorax. Degenerative changes thoracic spine with kyphosis IMPRESSION: Postsurgical change with cardiomegaly, bilateral pleural effusions and left basilar airspace disease Dictated by: Vinayak Bradford MD 07/14/2019 13:05 Electronically signed by Vinayak Bradford MD in [facility] 07/14/2019 13:05
[2019-07-14 12:13] LABS: Basophils # 0.2 K/mm3 (0-0.2); Basophils % 1.8 % (0.1-2.0); Eosinophils # 0.2 K/mm3 (0.0-0.4); Eosinophils % 1.6 % (0.1-12.0); Hematocrit 36.8 % (42.0-52.0); Hemoglobin 12.3 g/dL (14.1-18.0); Lymphocytes # 1.4 K/mm3 (0.7-4.5); Lymphocytes % 12.7 % (10-50); Mean Corpuscular HGB Conc 33.5 g/dL (31.8-35.4); Mean Corpuscular Hemoglobin 30.4 pg (27.0-31.2); Mean Corpuscular Volume 90.7 fl (80-94); Mean Platelet Volume 7.2 fl (7.4-10.4); Monocytes # 0.4 K/mm3 (0.1-1.0); Monocytes % 3.8 % (1.7-9.3); Neutrophils # 8.8 K/mm3 (1.8-7.8); Neutrophils % 80.1 % (37.0-80.0); Platelet Count 451 K/mm3 (142-424); Red Blood Count 4.06 M/mm3 (4.60-6.20); Red Cell Distribution Width 14.4 % (11.5-17.5)
[2019-07-14 12:14] LABS: Chloride 99 mmol/L (98-107); Potassium 3.9 mmoL/L (3.5-5.1); Sodium 135 mmol/L (136-145)
[2019-07-14 12:17] LABS: Anion Gap 11.9 mEq/L (5-15); Blood Urea Nitrogen 11 mg/dl (9-20); Calcium 9.2 mg/dl (8.4-10.2); Carbon Dioxide 28 mmol/L (22.0-30.0); Creatinine Clearance Estimated 140 mL/min (50-200); Estimated Glomerular Filt Rate 106 ml/min (>60); GFR (African American) 128 ML/MIN (>60); Glucose 205 mg/dl (74-100)
[2019-07-14 12:31] LABS: Troponin I 0.07 ng/ml (0.00-0.034)
--- NOTE | 2019-07-14 12:48 | HMH.EDARPALP ---
ED Disposition Clinical Impression: Pericardial effusion Atrial flutter Qualifiers: Atrial flutter type: unspecified Qualified Code(s): I48.92 - Unspecified atrial flutter Disposition: Xfer Short-Term Hosp Condition on Discharge: Fair Referrals: José Antonio Carmona MD [Primary Care Provider] - - Critical Care Critical Care Time: No Attestation: On 07/14/19, the high probability of a clinically significant, sudden or life threatening deterioration of the following system(s) required my full and direct attention, intervention and personal management. The time I documented below is in addition to time spent performing reported procedures but includes the following listed in this critical care notation. Medical Decision Making - Medical Records Medical records reviewed: Yes: I reviewed the patient's medical records. - Martell Inquiry Pt receiving controlled substance: No Vital Signs: 07/14/19 11:41 Temperature 98.5 F Temperature Source Oral Pulse Rate [Right Radial] 150 H Respiratory Rate 22 Blood Pressure [Right Arm] 118/78 Blood Pressure Mean [Right Arm] 91 Blood Pressure Source [Right Arm] Automatic Cuff Blood Pressure Position [Right Arm] Sitting 02 Sat by Pulse Oximetry 99 Oxygen Delivery Method Room Air - Lab Data Lab results reviewed: Yes: I reviewed the patient's lab results. Lab Results 07/14/19 11:50: WBC 11.0 H, RBC 4.06 L, Hgb 12.3 L, Hct 36.8 L, MCV 90.7, MCH 30.4, MCHC 33.5, RDW 14.4, Plt Count 451 H, MPV 7.2 L, Neut % (Auto) 80.1 H, Lymph % (Auto) 12.7, [place] % (Auto) 3.8, Eos % (Auto) 1.6, Baso % (Auto) 1.8, Neut # (Auto) 8.8 H, Lymph # (Auto) 1.4, [place] # (Auto) 0.4, Eos # (Auto) 0.2, Baso # (Auto) 0.2 07/14/19 11:50: Sodium 135 L, Potassium 3.9, Chloride 99, Carbon Dioxide 28, Anion Gap 11.9, BUN 11, Creatinine 0.80, Estimated Creat Clear 140, Estimated GFR 106, Est GFR ( Amer) 128, Glucose 205 H, Calcium 9.2, Troponin I 0.07 H Result diagrams: 07/14/19 11:50 07/14/19 11:50 Orders (Tests/Meds): ED MEDICATIONS Discontinued Medications Generic Name Dose Route Start Last Admin Trade Name Gloria PRN Reason Stop Dose Admin Ioversol 70 ml 07/14/19 12:49 07/14/19 12:51 Rad-Optiray 350 100ml Vial IV 07/14/19 12:50 70 ml ONCE ONE Administration Protocol Sodium Chloride 50 ml 07/14/19 12:49 07/14/19 12:51 Rad-Ns 50ml Vial IV 07/14/19 12:50 50 ml ONCE ONE Administration Sodium Chloride 10 ml 07/14/19 12:49 07/14/19 12:51 Rad-Saline Flush 10ml Syringe IV 07/14/19 12:50 10 ml ONCE ONE Administration ORDERS Category Date Time Status Troponin I Q3H Lab 07/14/19 15:15 Ordered Troponin I Q3H Lab 07/14/19 18:15 Ordered - Radiology Data #1 Image(s): Chest Image Reviewed: Yes I reviewed the patient's radiology image Preliminary Findings: Abnormal (cm ) - CT Data CT Scan: Chest Time Received: 13:[address] Reviewed: Yes: I have viewed the radiologist's interpretation Preliminary Findings: Abnormal (see report ) - ECG Data Tracing #1 Arrhythmias present: aflutter Ischemic changes: non-specific ST-T wave changes - Physician Consults Physician Consulted: alfredo Reason -: Transfer to another facilty - Reevaluation(s) Time: 13:42 Reevaluation #1: stable and declined ems transfer - ALVARO Score for Non-Stemi Age of Patient: 40-49 years old Heart Rate: 150-199 bpm Systolic Blood Pressure: 100-119 mmHg Serum Creatinine: 0.80-1.19 mg/dl CHF [place] Class: I-No CHF Other Risk Factors: Elevated Cardiac Enzymes or Biomarkers Non-Stemi Risk Score: 127 Arrhythmia/Palpitations HPI - General Chief Complaint: Arrhythmia/Palpitations Stated Complaint: RECENT HEART SURGERY, SOA, ELEVATED HR Time Seen by Provider: 07/14/19 12:00 Mode of Arrival: Ambulatory Source of Information: Patient, Spouse, Medical Record Limitations: No Limitations - History of Present Illness HPI narrative: pt with increased hr and some sob
--- NOTE | 2019-07-14 13:17 | PC.NURSE ---
Dr Juárez speaking with kendyad
--- NOTE | 2019-07-14 13:31 | PC.NURSE ---
Dr Juárez speaking with Dr Jones. cardiology
--- NOTE | 2019-07-14 13:34 | PC.NURSE ---
DR DSOUZA HAS ACCEPTED PT INTO THE ED AT
--- NOTE | 2019-07-14 13:34 | PC.NURSE ---
DISC REQUESTED FROM [facility]
[2019-07-14 13:53] VITALS: BP 124/81; PULSE 143; RESP 20; TEMP 36.7; O2SAT 97
[2019-07-17 15:41] LABS: POC Glucose,Bedside 125 (70-110)
== END 2019-07-14 13:55 | disposition short-term general hospital (02) ==
PROVIDERS: Emergency Provider Emergency Medicine; PCP Family Medicine
DX: I31.3 Pericardial effusion (noninflammatory) (principal); I48.92 Unspecified atrial flutter; Z95.2 Presence of prosthetic heart valve; I35.0 Nonrheumatic aortic (valve) stenosis; I10 Essential (primary) hypertension; Z79.899 Other long term (current) drug therapy
CPT/HCPCS: 71046; 71275; 80048; 82962; 84484; 85025; 93005; 99284; Q9967

== ENCOUNTER → 2019-07-23 10:04 | Outpatient (CLI) | payer OTHER, SELFPAY ==
--- NOTE | 2019-07-23 10:05 | CA_ITS ---
APPROVED REPORT EXAM: Comprehensive 2D, Doppler, and color-flow Echocardiogram Assembler Crimper: Glendy German RDCS Ht: 6 ft 2 in Wt: 340lbs BSA: 2.72 BP: 118/78 mmHg Indications: PERICARDIAL EFFUSION CHECK POST TISSUE AVR 2D Dimensions LVOT 2.27 cm (M/F) 1.5-2.5 M-Mode Dimensions RVDd 3.77 cm (0.9-2.6) LVDd 6.10 cm (3.5-5.7) LVDs 4.71 cm (3.5-5.7) IVSd 0.85 cm (0.6-1.1) PWd 1.08 cm (0.6-1.1) EF (Teich) 44.90% FS 22.80% EDV (Teich) 186.90 mL ESV (Teich) 102.90 mL LV Diastology E/A Ratio 1.31 Aortic Valve LVOT Max 127.00 (70-110 cm/s) LVOT VTI 27.22 cm Mitral Valve MV A Velocity 66.00 (40-130 cm/s) MV PHT 90.00 ms Left Ventricle Left atrium is mildly enlarged, left ventricle is normal size, there is no concentric left ventricular hypertrophy, visually estimated ejection fraction 55% with no regional wall motion abnormality, diastolic parameters are inconclusive. Right Ventricle Right atrium and right ventricle are normal size and contractility. Aortic Valve There is a bioprosthetic valve noted in the aortic position, the valve is well-seated. There is acceptable gradient across the prosthetic valve, there is no aortic insufficiency. Mitral Valve Mitral valve is grossly normal, there is mild mitral regurgitation. Tricuspid Valve Tricuspid valve grossly normal, there is mild tricuspid regurgitation. Tricuspid regurgitation jet velocity is inadequate for calculation of the right ventricular systolic pressure. Pulmonic Valve Pulmonic valve is poorly visualized. Great Vessels Aortic root is normal size. Pericardium No significant pericardial effusion noted. Conclusion 1. Mildly enlarged left atrium, normal left ventricular size, visually estimated ejection fraction 55% with no regional wall motion abnormality, diastolic parameters are inconclusive. 2. Normal functioning bioprosthetic valve in the aortic position. 3. Mild mitral and tricuspid regurgitation. 4. No significant pericardial effusion noted. Electronically signed by : Eusebio Cordova, 07/23/2019 22:29:10
== END ==
PROVIDERS: PCP Family Medicine; Visit Provider Physician Assistant
DX: R06.00 Dyspnea, unspecified (principal); R53.83 Other fatigue; Z95.2 Presence of prosthetic heart valve; I35.0 Nonrheumatic aortic (valve) stenosis
CPT/HCPCS: 93306

== ENCOUNTER → 2019-08-05 08:46 | Outpatient (CLI) | payer OTHER, SELFPAY ==
[2019-08-05 10:23] LABS: Glucose,Fasting 140 mg/dl (74-100)
[2019-08-05 10:45] LABS: Glucose 1 Hour 198 mg/dL (74-100)
[2019-08-05 11:36] LABS: Glucose 2 Hour 160 mg/dL (74-100)
== END ==
PROVIDERS: Visit Provider Physician Assistant
DX: R73.09 Other abnormal glucose (principal); E66.01 Morbid (severe) obesity due to excess calories; I10 Essential (primary) hypertension; I31.3 Pericardial effusion (noninflammatory); I35.0 Nonrheumatic aortic (valve) stenosis; I48.92 Unspecified atrial flutter; G47.33 Obstructive sleep apnea (adult) (pediatric); Z95.2 Presence of prosthetic heart valve
CPT/HCPCS: 36415; 82951

== ENCOUNTER → 2019-09-02 11:29 | Outpatient (CLI) | payer OTHER, SELFPAY ==
--- NOTE | 2019-09-02 11:35 | XR_ITS ---
PROCEDURE: XR CHEST 2V CLINICAL HISTORY: aortic valve replaced Heart disease COMPARISON: CXR CHEST(2 VIEWS-NOT PORTABLE) from 02/10/2015 XR CHEST 2V from 06/28/2019 CT ANGIO CHEST from 07/14/2019 XR CHEST 2V from 07/14/2019 FINDINGS: Prior median sternotomy. Mild cardiomegaly without failure. Prior aortic valve replacement. The lungs are clear without infiltrates, suspicious nodules, or pleural effusions. Degenerative changes thoracic spine with kyphosis of the lower thoracic spine unchanged IMPRESSION: Prior AVR with mild cardiomegaly. No change with no acute finding Dictated by: Vinayak Bradford MD 09/02/2019 12:04 Electronically signed by Vinayak Bradford MD in [place] 09/02/2019 12:04
== END ==
PROVIDERS: PCP Family Medicine; Visit Provider Urology
DX: I48.0 Paroxysmal atrial fibrillation (principal); I10 Essential (primary) hypertension; I31.3 Pericardial effusion (noninflammatory); R53.83 Other fatigue; E66.01 Morbid (severe) obesity due to excess calories; G47.33 Obstructive sleep apnea (adult) (pediatric); Z79.899 Other long term (current) drug therapy; Z95.2 Presence of prosthetic heart valve
CPT/HCPCS: 71046

== ENCOUNTER → 2019-09-06 16:30 | Outpatient (CLI) | payer OTHER, SELFPAY ==
[2019-09-06 19:57] LABS: Alanine Aminotransferase 31 U/L (12-78); Albumin Level 4.8 g/dl (3.5-5.0); Alkaline Phosphatase 87 U/L (38-126); Aspartate Amino Transferase 35 U/L (17-59); Bilirubin,Direct 0.2 mg/dl (0.0-0.4); Bilirubin,Indirect 0.3 mg/dL (0.0-0.9); Bilirubin,Total 0.5 mg/dl (0.2-1.3); Bilirubin,Unconjugated 0.3 mg/dL (0.0-1.1); Total Protein,Serum 7.7 g/dl (6.3-8.2)
[2019-09-06 20:13] LABS: Free Thyroxine Index 4.3 ug/dL (5.93-13.13); T4 (Thyroxine) 12.3 ug/dl (5.53-11.0); Triiodothryronine (T3) Uptake 35 % (23.5-40.5)
[2019-09-06 20:27] LABS: Thyroid Stimulating Hormone 0.94 uIU/mL (0.465-4.68)
== END ==
PROVIDERS: Visit Provider Urology
DX: R53.83 Other fatigue (principal); I10 Essential (primary) hypertension; I31.3 Pericardial effusion (noninflammatory); I48.0 Paroxysmal atrial fibrillation; E66.01 Morbid (severe) obesity due to excess calories; G47.33 Obstructive sleep apnea (adult) (pediatric); Z95.2 Presence of prosthetic heart valve
CPT/HCPCS: 36415; 80076; 84436; 84443; 84479

== ENCOUNTER → 2020-08-20 15:13 | Outpatient (CLI) | payer OTHER, SELFPAY | PROVIDERS: PCP Family Medicine; Visit Provider Internal Medicine | DX: R06.00 Dyspnea, unspecified (principal); I48.0 Paroxysmal atrial fibrillation; I31.3 Pericardial effusion (noninflammatory); I48.92 Unspecified atrial flutter; Z95.2 Presence of prosthetic heart valve | CPT/HCPCS: 93306 ==

== ENCOUNTER → 2021-12-06 10:48 | Outpatient (CLI) | payer OTHER, SELFPAY ==
--- NOTE | 2021-12-06 10:56 | CA_ITS ---
APPROVED REPORT EXAM: Comprehensive 2D, Doppler, and color-flow Echocardiogram Director Dermatology: Smitha Avila RT(R) Ht: 6 ft 2 in Wt: 357lbs BSA: 2.78 BP: 139/73 mmHg Indications: AVR bioprosthetic, HTN, obesity, VIRA, AFIB, morbid obesity. 2D Dimensions LVOT 2.16 cm (M/F) 1.5-2.5 LA Volume 53.70 mL LA Volume Index 19.31 mL/m2 (M/F) 16-34 M-Mode Dimensions RVDd 2.53 cm (0.9-2.6) LA Diam 5.13 cm (1.9-4.0) LVDd 5.95 cm (3.5-5.7) Ao Diam 2.92 cm (2.0-3.7) LVDs 4.31 cm (3.5-5.7) IVSd 0.84 cm (0.6-1.1) PWd 1.36 cm (0.6-1.1) EF (Teich) 52.70% FS 27.60% EDV (Teich) 176.60 mL ESV (Teich) 83.50 mL LV Diastology E Decel Time 200.00 (160-240 msec) E/A Ratio 1.1 MED E' 7.90 (< 7 cm/sec) E'/MED E' Ratio 9.05 (>14) Aortic Valve LVOT Max 111.00 (70-110 cm/s) LVOT VTI 20.35 cm AoV Peak Janak. 242.00 (50-130 cm/s) AO Peak GR. 23.40 mmHg AO Mean GR. 11.50 (<5 mmHg) AO VTI 46.53 (18-25 cm) JAX (VTI) 1.60 (2.5-4.5 cm2) Mitral Valve MV E Max Janak. 72.00 (40-130 cm/s) MV A Velocity 66.00 (40-130 cm/s) E/A Ratio 1.08 MV Decel. Time 200.00 (160-240 ms) MV PHT 59.00 ms Left Ventricle Left atrium is mildly enlarged, left ventricle is normal size mild concentric left ventricular hypertrophy, estimated ejection fraction 55% with no regional wall motion abnormality, diastolic parameters are inconclusive. Right Ventricle Right atrium and right ventricle are normal size and contractility. Aortic Valve There is a bioprosthetic valve noted in the aortic position the valve is well-seated, mean gradient across valve is 11 mmHg which is within acceptable range for prosthetic valve, there is no aortic insufficiency. Mitral Valve Mitral valve grossly normal, there is trace mitral regurgitation. Tricuspid Valve Tricuspid valve is grossly normal, there is trace tricuspid regurgitation, tricuspid regurgitation jet velocity is inadequate for calculation of the right ventricular systolic pressure. Pulmonic Valve Pulmonic valve is poorly visualized. Great Vessels Aortic root is normal size. Inferior vena cava is poorly visualized. Pericardium No significant pericardial effusion noted. Conclusion 1. Mildly enlarged atrium, normal left ventricular size, mild concentric left ventricular hypertrophy, estimated ejection fraction 55% with no regional wall motion abnormality, diastolic parameters are inconclusive. 2. Normal functioning bioprosthetic valve in the aortic position. 3. Trace mitral and tricuspid regurgitation. 4. No significant pericardial effusion. 5. Inferior vena cava is poorly visualized. Electronically signed by : Eusebio Cordova MD 12/06/2021 20:18:01
== END ==
PROVIDERS: Visit Provider Internal Medicine
DX: I21.4 Non-ST elevation (NSTEMI) myocardial infarction (principal); I48.0 Paroxysmal atrial fibrillation; I35.0 Nonrheumatic aortic (valve) stenosis; I10 Essential (primary) hypertension; E66.01 Morbid (severe) obesity due to excess calories; Z68.42 Body mass index [BMI] 45.0-49.9, adult; G47.33 Obstructive sleep apnea (adult) (pediatric); Z95.2 Presence of prosthetic heart valve
CPT/HCPCS: 93306

== ENCOUNTER → 2021-12-09 16:47 | Outpatient (CLI) | payer OTHER, SELFPAY ==
[2021-12-09 17:10] LABS: Basophils # 0.1 K/mm3 (0-0.2); Basophils % 1.4 % (0.1-2.0); Eosinophils # 0.2 K/mm3 (0.0-0.4); Eosinophils % 3.2 % (0.1-12.0); Hematocrit 45.5 % (42.0-52.0); Hemoglobin 15.2 g/dL (14.1-18.0); Lymphocytes # 1.6 K/mm3 (0.7-4.5); Lymphocytes % 27.6 % (10-50); Mean Corpuscular HGB Conc 33.4 g/dL (31.8-35.4); Mean Corpuscular Volume 89.7 fl (80-94); Mean Platelet Volume 7.9 fl (7.4-10.4); Monocytes # 0.4 K/mm3 (0.1-1.0); Monocytes % 6.2 % (1.7-9.3); Neutrophils # 3.6 K/mm3 (1.8-7.8); Neutrophils % 61.5 % (37.0-80.0); Platelet Count 224 K/mm3 (142-424); Red Blood Count 5.07 M/mm3 (4.60-6.20); Red Cell Distribution Width 14.1 % (11.5-17.5); White Blood Count 5.9 K/mm3 (4.8-10.8)
[2021-12-09 17:42] LABS: Alanine Aminotransferase 67 U/L (12-78); Albumin Level 4.7 g/dl (3.5-5.0); Alkaline Phosphatase 101 U/L (38-126); Anion Gap 17.5 mEq/L (5-15); Aspartate Amino Transferase 54 U/L (17-59); Bilirubin,Indirect 0.5 mg/dL (0.0-0.9); Bilirubin,Total 0.5 mg/dl (0.2-1.3); Bilirubin,Unconjugated 0.5 mg/dL (0.0-1.1); Blood Urea Nitrogen 15 mg/dl (9-20); Calcium 9.1 mg/dl (8.4-10.2); Carbon Dioxide 29 mmol/L (22.0-30.0); Chloride 98 mmol/L (98-107); Chol/HDL Ratio 5.4 (1-3.5); Cholesterol 157 mg/dl (140-200); Estimated Glomerular Filt Rate 81 ml/min (>60); GFR (African American) 98 ML/MIN (>60); Glucose 98 mg/dl (74-100); HDL Cholesterol 29 mg/dl (40-60); Magnesium 1.7 mg/dl (1.6-2.3); Potassium 4.5 mmoL/L (3.5-5.1); Sodium 140 mmol/L (136-145); Total Protein,Serum 7.4 g/dl (6.3-8.2); Triglycerides 171 mg/dl (30-150); VLDL Cholesterol 34 mg/dL (0-40)
[2021-12-09 17:52] LABS: Direct LDL Cholesterol 99.85 mg/dL (100-129)
[2021-12-09 17:59] LABS: Free T4 (Free Thyroxine) 1.09 ng/dl (0.78-2.19)
[2021-12-09 18:12] LABS: Thyroid Stimulating Hormone 1.33 uIU/mL (0.465-4.68)
== END ==
PROVIDERS: PCP Family Medicine; Visit Provider Nurse Practitioner
DX: I48.92 Unspecified atrial flutter (principal); I10 Essential (primary) hypertension; G47.33 Obstructive sleep apnea (adult) (pediatric); Z95.2 Presence of prosthetic heart valve; Z79.899 Other long term (current) drug therapy
CPT/HCPCS: 36415; 80048; 80061; 80076; 83735; 84439; 84443; 85025

== ENCOUNTER → 2022-02-25 16:53 | Outpatient (CLI) | payer OTHER, SELFPAY ==
--- NOTE | 2022-02-25 | XR_ITS ---
PROCEDURE INFORMATION: Exam: XR Right Knee Exam date and time: 02/25/2022 5:03 PM Age: 46 years old Clinical indication: Pain; Knee; Right; Additional info: Right knee pain - no injury TECHNIQUE: Imaging protocol: Radiologic exam of the Right knee. Views: 3 views. COMPARISON: No relevant prior studies available. FINDINGS: Bones/joints: Mild joint space narrowing in the patellofemoral compartment. Medial/lateral compartment joint spaces are maintained. No acute osseous injury. Soft tissues: Normal. IMPRESSION: Mild patellofemoral compartment arthritis. No acute injury.
== END ==
PROVIDERS: PCP Nurse Practitioner Family; Visit Provider Nurse Practitioner Family
DX: M25.561 Pain in right knee (principal)
CPT/HCPCS: 73562

== ENCOUNTER → 2022-12-23 15:10 | Outpatient (CLI) | payer OTHER, SELFPAY ==
--- NOTE | 2022-12-23 15:12 | CA_ITS ---
APPROVED REPORT EXAM: Comprehensive 2D, Doppler, and color-flow Echocardiogram Mallet Cutter: KATHERIN Schroeder, RVS Ht: 6 ft 2 in Wt: 351lbs BSA: 2.76 BP: 123/67 mmHg Indications: Aortic Valve Disease, Murmur, HTN, Obesity, AFib, VIRA Echo Enhancing Agent Comments: Extreme body habitus with limited windows 2D Dimensions Aortic Root 3.27 cm LA Volume 104.60 mL Left Atrium 4.59 cm LA Volume Index 37.00 mL/m2 (M/F) 16-34 LVOT 2.24 cm (M/F) 1.5-2.5 Ascending Aorta 3.42 cm M-Mode Dimensions RVDd 1.52 cm (0.9-2.6) LA Diam 5.13 cm (1.9-4.0) LVDd 6.26 cm (3.5-5.7) Ao Diam 3.80 cm (2.0-3.7) LVDs 4.34 cm (3.5-5.7) IVSd 0.89 cm (0.6-1.1) PWd 1.21 cm (0.6-1.1) EF (Teich) 57.20% EPSs 0.45 cm FS 30.70% EDV (Teich) 198.30 mL TAPSE 2.37 (<1.7) ESV (Teich) 84.90 mL LV Diastology E Decel Time 180.00 (160-240 msec) E/A Ratio 1.50 MED E' 7.00 (< 7 cm/sec) MED A' 8.50 cm/s E'/MED E' Ratio 11.90 (>14) LAT E' 7.80 (<10 cm/sec) LAT A' 9.40 cm/s E/LAT E' Ratio 10.68 (>14) Aortic Valve LVOT Max 121.00 (70-110 cm/s) LVOT VTI 26.87 cm AoV Peak Janak. 326.00 (50-130 cm/s) AO Peak GR. 42.40 mmHg AO Mean GR. 20.90 (<5 mmHg) AO VTI 62.94 (18-25 cm) JAX (VTI) 1.68 (2.5-4.5 cm2) Mitral Valve MV A Velocity 56.00 (40-130 cm/s) E/A Ratio 1.50 MV Decel. Time 180.00 (160-240 ms) MV Mean Gr. 1.70 (<2mmHg) Pulmonary Valve PV Peak Velocity 113.00 (50-150 cm/s) Left Ventricle The left ventricle is normal size. The left ventricular systolic function is normal. The left ventricular ejection fraction is within the normal range. There is increased LV wall thickness. There is normal LV segmental wall motion. LVEF is 65%. Right Ventricle Right ventricle is mildly dilated. The right ventricular systolic function is normal. There is increased RV wall thickness. Atria The left atrium size is normal. The right atrium size is normal. There is no Doppler evidence of interatrial shunt. Aortic Valve s/p bioprosthetic AVR. The prosthesis is well-seated. Peak velocity 3.4 m/s. Mean AV gradient is 21 mmHg. Max AV gradient is 45 mmHg. Acceleration time is 82 ms. DVI=0.43. Indexed EOA=0.61. Findings are suggestive of possible patient-prosthesis mismatch (PPM). Trace central aortic regurgitation is present. Mitral Valve The mitral valve is mildly thickened. No evidence of mitral valve stenosis. Trace mitral regurgitation. Tricuspid Valve The tricuspid valve leaflets are thin and pliable. Trace tricuspid regurgitation. There is insufficient TR jet to estimate RVSP. Pulmonic Valve The pulmonary valve is normal in structure. Trace pulmonic regurgitation. Great Vessels The aortic root is normal in size. The ascending aorta is normal in size. IVC is normal in size and collapses >50% with inspiration. Pericardium Trivial pericardial effusion noted anteriorly. Other Information Study Quality: Fair Conclusion Normal biventricular systolic function. Mildly dilated RV. s/p bioprosthetic AVR. Peak velocity 3.3 m/s. Mean AV gradient is 21 mmHg. Max AV gradient is 43 mmHg. Acceleration time is 82 ms. DVI=0.43. Indexed EOA=0.61. Findings are suggestive of possible patient-prosthesis mismatch (PPM). Further evalation of the increased AV gradients and possible PPM is recommended. Electronically signed by : Saba Asencio MD 12/31/2022 18:41:18
== END ==
PROVIDERS: PCP Nurse Practitioner Family; Visit Provider Internal Medicine
DX: I35.0 Nonrheumatic aortic (valve) stenosis (principal); R01.1 Cardiac murmur, unspecified; Z95.2 Presence of prosthetic heart valve
CPT/HCPCS: 93306

== ENCOUNTER 2023-06-01 12:26 | Outpatient (CLI) | payer BC, SELFPAY ==
[2023-06-01 12:50] LABS: Basophils # 0.1 K/mm3 (0-0.2); Basophils % 1.6 % (0.1-2.0); Eosinophils # 0.2 K/mm3 (0.0-0.4); Eosinophils % 3.2 % (0.1-12.0); Hematocrit 46.7 % (42.0-52.0); Hemoglobin 15.1 g/dL (14.1-18.0); Lymphocytes # 1.6 K/mm3 (0.7-4.5); Lymphocytes % 22.8 % (10-50); Mean Corpuscular HGB Conc 32.4 g/dL (31.8-35.4); Mean Corpuscular Hemoglobin 29.9 pg (27.0-31.2); Mean Corpuscular Volume 92.1 fl (80-94); Mean Platelet Volume 7.7 fl (7.4-10.4); Monocytes # 0.5 K/mm3 (0.1-1.0); Monocytes % 6.3 % (1.7-9.3); Neutrophils # 4.7 K/mm3 (1.8-7.8); Platelet Count 204 K/mm3 (142-424); Red Blood Count 5.07 M/mm3 (4.60-6.20); Red Cell Distribution Width 13.9 % (11.5-17.5); White Blood Count 7.2 K/mm3 (4.8-10.8)
[2023-06-01 13:25] LABS: Alanine Aminotransferase 32 U/L (12-78); Albumin Level 4.5 g/dl (3.5-5.0); Alkaline Phosphatase 72 U/L (38-126); Anion Gap 11.1 mEq/L (5-15); Aspartate Amino Transferase 33 U/L (17-59); Bilirubin,Indirect 0.5 mg/dL (0.0-0.9); Bilirubin,Total 0.5 mg/dl (0.2-1.3); Bilirubin,Unconjugated 0.5 mg/dL (0.0-1.1); Blood Urea Nitrogen 17 mg/dl (9-20); Calcium 9.5 mg/dl (8.4-10.2); Carbon Dioxide 32 mmol/L (22.0-30.0); Chloride 102 mmol/L (98-107); Chol/HDL Ratio 5.5 (1-3.5); Cholesterol 122 mg/dl (140-200); Estimated Glomerular Filt Rate 91 ml/min (>60); GFR (African American) 110 ML/MIN (>60); Glucose 108 mg/dl (74-100); HDL Cholesterol 22 mg/dl (40-60); Magnesium 2.1 mg/dl (1.6-2.3); Potassium 4.1 mmoL/L (3.5-5.1); Sodium 141 mmol/L (136-145); Total Protein,Serum 6.9 g/dl (6.3-8.2); Triglycerides 139 mg/dl (30-150); VLDL Cholesterol 28 mg/dL (0-40)
[2023-06-01 13:36] LABS: Direct LDL Cholesterol 72.62 mg/dL (100-129)
[2023-06-01 13:42] LABS: Free T4 (Free Thyroxine) 1.01 ng/dl (0.78-2.19)
[2023-06-01 13:55] LABS: Thyroid Stimulating Hormone 0.88 uIU/mL (0.465-4.68)
[2023-06-01 14:23] LABS: Hemoglobin A1C 5.6 % (4.0-6.0)
== END 2023-06-01 23:59 | disposition home or self-care (01) ==
LOC: LAB 12:27
PROVIDERS: PCP Nurse Practitioner Family; Visit Provider Nurse Practitioner
DX: I48.0 Paroxysmal atrial fibrillation (principal); I35.0 Nonrheumatic aortic (valve) stenosis; G47.33 Obstructive sleep apnea (adult) (pediatric); E66.01 Morbid (severe) obesity due to excess calories; Z68.41 Body mass index [BMI] 40.0-44.9, adult; Z95.2 Presence of prosthetic heart valve
CPT/HCPCS: 36415; 80048; 80061; 80076; 83036; 83735; 84439; 84443; 85025

== ENCOUNTER 2023-06-06 13:02 | Outpatient (CLI) | payer BC, SELFPAY | END 2023-06-06 23:59 | disposition home or self-care (01) | LOC: RT 13:02 | PROVIDERS: PCP Nurse Practitioner Family; Visit Provider Nurse Practitioner | DX: I48.0 Paroxysmal atrial fibrillation (principal); I35.0 Nonrheumatic aortic (valve) stenosis; E66.01 Morbid (severe) obesity due to excess calories; Z68.41 Body mass index [BMI] 40.0-44.9, adult; G47.33 Obstructive sleep apnea (adult) (pediatric); Z95.2 Presence of prosthetic heart valve | CPT/HCPCS: 93270 ==

== ENCOUNTER 2023-11-13 14:40 | Outpatient (CLI) | payer BC, SELFPAY | END 2023-11-13 23:59 | disposition home or self-care (01) | LOC: RT 14:41 | PROVIDERS: PCP Nurse Practitioner Family; Visit Provider Internal Medicine | DX: I48.0 Paroxysmal atrial fibrillation (principal); R00.2 Palpitations | CPT/HCPCS: 93270 ==

== ENCOUNTER 2023-11-29 15:12 | Outpatient (CLI) | payer BC, SELFPAY ==
--- NOTE | 2023-11-29 15:21 | CA_ITS ---
APPROVED REPORT EXAM: Comprehensive 2D, Doppler, and color-flow Echocardiogram Adjunct Mathematics Instructor: KATHERIN Schroeder, RVS Ht: 6 ft 2 in Wt: 342lbs BSA: 2.73 BP: 129/74 mmHg Indications: Paplitations, Afib, aflutter, AVR-bovine, HTN, VIRA, HLD, SOB Echo Enhancing Agent Comments: TDS: due to chest wall circumference 2D Dimensions IVSd 1.73 cm LVEF (Visual) 72.40 % PWd 1.67 cm LA Volume 96.50 mL LVDd 4.67 cm LA Volume Index 34.50 mL/m2 (M/F) 16-34 LVDs 2.73 cm Left Atrium 5.37 cm M-Mode Dimensions LA Diam 5.71 cm (1.9-4.0) EPSs 0.35 cm LV Diastology E Decel Time 227 (160-240 msec) E/A Ratio 4.16 MED A' 2.50 cm/s Aortic Valve JAX Index 0.47 cm2/m2 AoV Peak Janak. 313.0 (50-130 cm/s) AO Peak GR. 39.20 mmHg AO Mean GR. 21.80 (<5 mmHg) AO VTI 68.8 (18-25 cm) JAX (VTI) 1.32 (2.5-4.5 cm2) Mitral Valve MV A Velocity 23.0 (40-130 cm/s) E/A Ratio 4.16 Left Ventricle The left ventricle is normal size. The left ventricular systolic function is normal. The left ventricular ejection fraction is within the normal range. There is increased LV wall thickness. There is normal LV segmental wall motion. Diastolic function is indeterminate. LVEF is 55%. Right Ventricle The right ventricle is normal size. The right ventricular systolic function is normal. Atria The left atrium size is normal. The right atrium size is normal. There is no Doppler evidence of interatrial shunt. Aortic Valve s/p bioprosthetic AVR. The prosthesis is well-seated. Peak velocity 3.2 m/s. Mean AV gradient 21 mmHg. Max AV gradient 40 mmHg. Acceleration time 84 ms. DI=0.30. Indexed EOA is 0.5 cm2/m2. Findings are suggestive of patient???prosthesis mismatch in the appropriate clinical setting. Trace central aortic regurgitation. Mitral Valve The mitral valve leaflets are mildly thickened. Mild mitral regurgitation. No evidence of mitral valve stenosis. Tricuspid Valve The tricuspid valve leaflets are thin and pliable. Trace tricuspid regurgitation. There is insufficient TR jet to estimate RVSP. Pulmonic Valve The pulmonary valve is normal in structure. Trace pulmonic regurgitation. Great Vessels The aortic root is not well-visualized. IVC is normal in size and collapses >50% with inspiration. Pericardium Trivial, anterior pericardial effusion is present. No echo indications of tamponade. Other Information Study Quality: Fair Conclusion Normal biventricular systolic function. Mild MR. s/p bioprosthetic AV. Peak velocity 3.2 m/s. Mean AV gradient 21 mmHg. Max AV gradient 40 mmHg. Acceleration time 84 ms. DI=0.30. Indexed EOA is 0.5 cm2/m2. Findings are suggestive of patient???prosthesis mismatch in the appropriate clinical setting. Compared to prior study from 12/2022, the transaortic velocities and gradients are overall unchanged. Electronically signed by : Saba Asencio MD 12/04/2023 01:37:56
== END 2023-11-29 23:59 | disposition home or self-care (01) ==
LOC: RT 15:13
PROVIDERS: PCP Nurse Practitioner Family; Visit Provider Physician Assistant
DX: I48.0 Paroxysmal atrial fibrillation (principal); R00.2 Palpitations
CPT/HCPCS: 93306

== ENCOUNTER 2024-08-28 03:38 | Inpatient (IN) | payer BC, SELFPAY ==
[2024-08-28] VITALS (28 sets, daily range): BP systolic 91–149; BP diastolic 51–80; PULSE 60–80; RESP 16–21; TEMP 36.6–36.9; O2SAT 88–98; BMI 43.6; BMI 41.9
--- NOTE | 2024-08-28 04:00 | XR_ITS ---
PROCEDURE INFORMATION: Exam: XR Chest Exam date and time: 08/28/2024 4:10 AM Age: 48 years old Clinical indication: Cough and shortness of breath; Additional info: SOA cough walking pna TECHNIQUE: Imaging protocol: Radiologic exam of the chest. Views: 2 views. COMPARISON: CR XR CHEST 2V 09/02/2019 11:39 AM FINDINGS: Lungs: Mild diffuse interstitial changes. Pulmonary vascular prominence. Pleural spaces: Unremarkable. No pleural effusion. No pneumothorax. Heart/Mediastinum: Aortic valve replacement. Bones/joints: Median sternotomy. IMPRESSION: Median sternotomy. Aortic valve replacement. Mild diffuse interstitial changes. Pulmonary vascular prominence.
--- OUTSIDE RECORDS SUMMARY | 2024-08-28 04:04 | XMS_ITS | Clinical Summary ---
Author Organization [facility] Address [address] [place] [address] Care Team Providers Care Supervisor Pairing And Inspecting Name Role Phone José Antonio Carmona MD Primary Care Provider [phone] Immunizations Immunization Administration Dates Next Due Pneumococcal Polysaccharide PPV23 07/12/2019 Family History Medical History Relation Name Comments Atrial fibrillation Father Conversions - Other Mother heart va lve stenosis Diabetes Mother Diabetes Mother's Sister Diabetes Paternal Grandmother Relation Name Status Comments Father Mother Mother's Sister Paternal Grandmother Social History Tobacco Use Types Packs/Day Years Used Date Smoking Tobacco: Former Alcohol Use Standard Drinks/Week Comments Yes 0 (1 standard drink = 0.6 oz pur e alcohol) Sex and Gender Information Value Date Recorded Sex Assigned at Not on file Legal Sex Male 7:00 PM EDT Gender Identity Not on file Sexual Orientation Not on file Last Filed Vital Signs Vital Sign Reading Time Taken Comments Blood Pressure 126/84 08/01/2019 1:53 PM EDT Pulse 66 08/01/2019 1:53 PM EDT Temperature - - Respiratory Rate - - Oxygen Saturation - - Inhaled Oxygen Concentration - - Weight 150 kg (330 lb 0.5 oz) 08/01/2019 1:53 PM EDT Height 188 cm (6' 2 ) 08/01/2019 1:53 PM EDT Body Mass Index 42.37 08/01/2019 1:53 PM EDT Plan of Treatment Health Maintenance Due Date Last Done Comments [facility]-Depression Screening 1976 [facility]-/Child/Adol SDOH Screenings 1976 [facility]- SDOH Screenings 1994 [facility]-Adult SDOH Screenings 1994 [facility]-DTaP,Tdap,and Td Vaccines (1 - Tdap) 11/03/1995 [facility]-Hepatitis B Vaccines (1 of 3 - 19+ 3-dose series) 11/03/1995 CT Colonography 2021 Colonoscopy 2021 FIT-DNA 2021 FIT 2021 FOBT 2021 Sigmoidoscopy 2021 [facility]-Colorectal Cancer Screening 2021 [id number] Vaccine ( season) 2023 01/01/2021, 04/03/2020, 03/06/2020 [facility]-Influenza Vaccine (#1) 10/14/202411/24, 12/12/2021, 12/10/2020, Additional history exists [facility]-Zoster Vaccines (1 of 2) 2026 [facility]-Pneumococcal Vaccine: Pediatrics (0 to 5 Years) and At-Risk Patients (6 to 49 Years) Aged Out 07/12/2019 No longer eligible based on patient's age to complete this topic HPV Vaccines Aged Out No longer eligi ble based on patient's age to complete this topic [facility]-HIB Vaccines Aged Out No longer e ligible based on patient's age to complete this topic [facility]-Hepatitis A Vaccines Aged Out No longer eligible based on patient's age to complete this topic [facility]-IPV Vaccines Aged Out No longer e ligible based on patient's age to complete this topic [facility]-Rotavirus Vaccines Aged Out No lo nger eligible based on patient's age to complete this topic Insurance ANTHEM Care Teams Supervisor Pairing And Inspecting Relationship Specialty Start Date End Date José Antonio Carmona MD [address] [place] [address] PCP - General 06/26/20
--- OUTSIDE RECORDS SUMMARY | 2024-08-28 04:04 | XMS_ITS | Data Portability ---
Author Organization [facility] Address [address] [place] [address] Care Team Providers Care Semiconductor Processing Technician Name Role Phone VON ADKINS Primary Care Provider [phone] Assessment No assessment recorded. Plan of Treatment Reminders Order Date Submit Date Provider Last Modified By Organization Details Last Modified Time Details Appointments None recorded. Lab None recorded. Referral None recorded. Procedures None recorded. Surgeries None recorded. Imaging XR, lumbar spine 2024 025 [facility], [address] [place] [address] [place], [address], 14:36:45 Medication Orders Medrol (Gerald) 4 mg tablets in a dose pack 2024 025 KURTIS Barrientos [facility], [address] [place] [address] [place], [place], [id number], 5 11:24:48 hydrocodone 5 mg-acetamin ophen 325 mg tablet 2024 025 KURTIS [facility], [address] [place] [address] [place], [id number], 5 11:24:49 methocarbam ol 750 mg tablet 2024 025 KURTIS Barrientos [facility], [address] [place] [address] [place], [place], [id number], 17:48:00 Patient TargetsNo targets recorded. Patient InstructionsNo instructions recorded. Reason for Referral None Reported. Results Created Date Observation Date Name Description Value Unit Range Abnormal Flag Note LastModifiedBy Organization Detail LastModifiedTime 02/20/19 25 XR, lumba r spine No observ ation record ed. [email or web address] [facility] [address] [facility] , [place], [address], 02/21/2024 10:43:31 Result Notes None recorded. Procedures Surgical History Date Name Laterality Status Provider Name and Address Organization Details Recorded Time 02/13/19 20 Cardiovascular Surgery completed Mercedes WILSON [facility] & [place] 02/21/2024 10:34:55 02/13/19 Abdominal Surgery completed Mercedes WILSON [facility] & [place] 02/21/2024 10:34:55 Imaging Results None recorded. Procedure Notes None recorded. Medical Equipment None Reported. Allergies No known drug allergies Medications Name Sig Start Date Stop Date Status Note LastModified by Organization Details LastModified Time hydrocodone 5 mg-acetaminoph en 325 mg tablet TAKE ONE TABLET BY MOUTH EVERY 6 HOURS NEEDED FOR PAIN active Not Available Not Available No t Available meloxicam 15 mg tablet active Not Available Not Available No t Available metoprolol succinate ER 100 mg tablet,extende d release 24 hr active Not Available Not Available Not Available methocarbamol 750 mg tablet TAKE ONE TABLET BY MOUTH THREE TIMES DAILY NEEDED active Not Available Not Available No t Available flecainide 50 mg tablet active Not Available Not Available No t Available methylpredniso lone 4 mg tablets in a dose pack TAKE DIRECTED active Not Available Not Available No t Available atorvastatin active Not Available Not Available Not Available lisinopril active Not Available Not Av ailable Not Available metoprolol succinate active Not Available Not Available No t Available Xarelto 20 mg tablet active Not Available Not Available Not Available Vitals None Recorded Social History Question Answer Notes LastModified by Organizat ion Details LastModified Time Tobacco Smoking Status Former Smoker Mercedes romo, [facility] & [place] 02/21/2024 10:34:49 Do You Have An Advance Directive? No [email or web address] Information not available 02/21/2024 Are You Blind Or Do You Have Difficulty Seeing? No Information not available 02/21/2024 What Was The Date Of Your Most Recent Tobacco Screening? 02/21/2024 Information not available 02/21/2024 Are You Passively Exposed To Smoke? No Information not available 02/21/2024 How Much Tobacco Do You Smoke? 0.5 PPD Information not available 02/21/2024 How Many Years Have You Smoked Tobacco? 5 Information not available 02/21/2024 Sex: Male Functional Status Question Answer Note LastModified by Organizat ion Details LastModified Time Do you use any illicit or recreational drugs? No Information not available 02/21/2024 What is your level of alcohol consumption? None Information not available 02/21/2024 Do you or have you ever used smokeless tobacco? 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 Occasional Information not available 02/21/2024 Mental Status Question Answer Note LastModified by Organization D etails LastModified Time Do you feel stressed (tense, restless, nervous, or anxious, or unable to sleep at night)? [id number] Information not available 02/21/2024 Family History Nothing Reported. Medical History Condition Response Spine Problems Y Obstructive Sleep Apnea Y Obesity Y Back Problems Y Hypertension Y Past Encounters Encounter ID Performer Location Encounter Start Date Encounter Closed Date Diagnosis/Indication Diagnosis SNOMED-CT Code Diagnosis ICD10 Code Diagnosis Note [id number] DO WAGNER [facility] [address] [place] [id number] 02/21/2024 10:01:52 02/21/2024 10:41:53 Low back pain 425109242 M54.50 Lumbar radiculitis [id number] M54.16 Health Concerns Section Related Observation LastModified by Organization Detai ls LastModified Time None Recorded Concern Status LastModified by Organization Details LastModified Time None Recorded Advance Directives Directive N: Payers Insurance Date Sequence Insurance Name Policy Number Policy Drake Covered Member ID Drake Member ID Guarantor Name 03/12/2024 1 [place] [id number] Jamir Pulliam [id number] Jamir Heraclio Notes Date Note Type Note Provider Name and Address Organization Details Recorded Time 02/21/2024 text/html 48 y/o male here today for lower back pain that started yesterday. NKI. C/O lower right side back pain that radiates down to knee. Hx of bulging disc 10 years ago est, 2 epidural injections with [facility]. Taking Naproxen. XR today in office. [id number] ROXANA BARNES, DO [address] [facility],[address], [place], [address], [place] - [facility] - [place] & [place] 02/22/2024 07:14:53
--- OUTSIDE RECORDS SUMMARY | 2024-08-28 04:04 | XMS_ITS | Data Portability ---
Author Organization [facility] Address [address] [place] [address] Care Team Providers Care Camera Systems Engineer Name Role Phone SYLVESTER FIGUEREDO Referring Provider [phone] Assessment No assessment recorded. Plan of Treatment Reminders Order Date Submit Date Provider Last Modified By Organization Details Last Modified Time Details Appointments None recorded. Lab culture, urine 2023 024 [facility], [address], Rufino [address], [place], [address], 4 08:23:14 urinalysis, dipstick 2023 024 [facility], [address] [place] [address], [address], 4 08:23:14 Referral None recorded. Procedures None recorded. Surgeries None recorded. Imaging None recorded. Medication Orders buspirone 5 mg tablet 2023 024 [facility], [address], [address], [place], [address], 4 10:38:27 metformin ER 500 mg tablet,exte nded release 24 hr 2023 024 [facility], [address], [address], [place], [address], 4 08:23:14 Ozempic 1 mg/dose (4 mg/3 mL) subcutaneou s pen injector 2022 023 [facility], [address], [address], [place], [address], 4 16:50:26 Wegovy 0.5 mg/0.5 mL subcutaneou s pen injector 2022 023 [facility], [address] [place] [address], [address], 17:30:29 Patient TargetsNo targets recorded. Patient Instructions Encounter Date Encounter Id Patient Instructions Last Modified By Organization Details Last Modified Time 05/26/2022 [id number] learning about low-carbohydrate diets efryman Not available 05/27/2022 13:54:38 learning about low-carbohydrate foods efryman Not available 05/27/2022 13:54:37 Counting Carbohydrates for Diabetes: Care Instructions efryman Not available 05/27/2022 13:54:38 body mass index: care instructions efryman Not available 05/27/2022 13:54:06 learning about healthy weight efryman Not available 05/27/2022 13:54:06 11/24/2022 [id number] body mass index: care instructions efryman Not available 11/24/2022 14:23:28 learning about healthy weight efryman Not available 11/24/2022 14:23:28 Reason for Referral None Reported. Results Created Date Observation Date Name Description Value Unit Range Abnormal Flag Note LastModifiedBy Organization Detail LastModifiedTime 09/01/19 24 09/03/2023 URINE CULTU REJANKI urine culture, routine Final report Not Available [facility] ([facility]) [address], [place], [address], 09/03/2023 03:05:55 09/01/19 24 09/03/2023 URINE CULTU REJANKI result 1 No growth Not Available [facility] ([facility]) [address], [place], [address], 09/03/2023 03:05:55 07/19/20 24 09/01/2023 urina lysis , dipst ick Leukocytes Negati ve Not Available [address], [address], 09/01/2023 16:58:51 09/01/19 24 09/01/2023 urina lysis , dipst ick Nitrite negati ve Not Available [address], [address], 09/01/2023 16:58:51 09/01/19 24 09/01/2023 urina lysis , dipst ick Urobilinogen 1 Not Available Robert [address], [address], 09/01/2023 16:58:51 09/01/19 24 09/01/2023 urina lysis , dipst ick Protein Negati ve Not Available [address], [address], 09/01/2023 16:58:51 09/01/19 24 09/01/2023 urina lysis , dipst ick pH 6.0 Not Available [address], [address], 09/01/2023 16:58:51 09/01/19 24 09/01/2023 urina lysis , dipst ick Blood Large Not Available [address], [address], 09/01/2023 16:58:51 09/01/19 24 09/01/2023 urina lysis , dipst ick Specific [place] 1.025 Not Available [address], [address], 09/01/2023 16:58:51 09/01/19 24 09/01/2023 urina lysis , dipst ick Ketone Negati ve Not Available [address], [address], 09/01/2023 16:58:51 09/01/19 24 09/01/2023 urina lysis , dipst ick Bilirubin Negati ve Not Available [address], [address], 09/01/2023 16:58:51 09/01/19 24 09/01/2023 urina lysis , dipst ick Glucose Negati ve Not Available [address], [address], 09/01/2023 16:58:51 09/01/19 24 09/01/2023 urina lysis , dipst ick Appearance Clear Not Available [address], [address], 09/01/2023 16:58:51 09/01/19 24 09/01/2023 urina lysis , dipst ick Color Dark Yellow Not Available [address], [address], 09/01/2023 16:58:51 01/03/20 23 12/23/2022 US, doppl er echoc ardio gram No observ ation record ed. [place] [address], [place], [address], 01/03/2023 08:25:35 12/04/19 24 11/29/2023 US, doppl er echoc ardio gram No observ ation record ed. [facility] [address], [place], [address], 12/04/2023 08:42:34 Result Notes None recorded. Problems Name Problem SNOMED Code Status Onset Date Resolution Date Notes Provider Name and Address Organization Details Recorded Time Replacement of aortic valve Active 2022May 2019 Shaylee romo, [place] - [facility] 3 16:32:35 Diverticuliti s 037427105 Active 2014 Shaylee romo, [place] - [facility] 3 16:32:57 Obesity 369422648 Active Shaylee romo, [place] - [facility] 3 16:52:02 Body mass index 30+ - obesity 596987732 Active Shaylee romo, [place] - [facility] 3 16:52:20 Atrial fibrillation 45787199 Active 2022 Mak Mike, [employer] [address], [place], [address] , [place] - [facility] 3 16:57:12 Sleep apnea 73008592 Active 2022 Lilliancaitlin Deng clarissa, [place] - [facility] 3 16:29:57 Problem Notes None recorded. Procedures Surgical History Date Name Laterality Status Provider Name and Address Organization Details Recorded Time 05/31/19 20 Cardiac Surgery completed Shaylee Torres [facility] 02/24/2022 16:29:48 08/28/19 18 Colonoscopy completed Shaylee Torres [facility] 02/24/2022 16:29:48 excision of colon completed Shaylee Torres [facility] 02/24/2022 16:35:02 Imaging Results None recorded. Procedure Notes None recorded. Medical Equipment None Reported. Allergies No known drug allergies Medications Name Sig Start Date Stop Date Status Note LastModified by Organization Details LastModified Time buspirone 5 mg tablet TAKE 1 TABLET BY MOUTH TWICE DAILY NEEDED 2024 active Not Available Not Available Not Avai lable atorvastati n 20 mg tablet Take 1 tablet every day by oral route. active Not Available Not Available No t Available meloxicam 15 mg tablet Take 1 tablet as needed by oral route for 30 days. active Not Available Not Available No t Available metoprolol succinate ER 100 mg tablet,exte nded release 24 hr Take 1 tablet every day by oral route. active Not Available Not Available No t Available lisinopril 10 mg tablet Take 1 tablet every day by oral route. active Not Available Not Available No t Available flecainide 50 mg tablet Take 1 tablet twice a day by oral route as needed for 30 days. active Not Available Not Available No t Available aspirin 81 mg chewable tablet Chew 1 tablet every day by oral route. 08/31 completed Not Available Not Available Not Available metformin ER 500 mg tablet,exte nded release 24 hr TAKE 1 TABLET BY MOUTH ONCE DAILY 2024 active Not Available Not Available Not Avai lable Xarelto 20 mg tablet Take 1 tablet every day by oral route. active Not Available Not Available No t Available Ozempic 0.25 mg or 0.5 mg (2 mg/1.5 mL) subcutaneou s pen injector Inject 0.25 mg every week by subcutane ous route. 09/13 completed Not Available Not Available Not Available Ozempic 1 mg/dose (4 mg/3 mL) subcutaneou s pen injector 08/31 completed Not Available Not Available Not Available Wegovy 0.25 mg/0.5 mL subcutaneou s pen injector Inject 0.25 mg every week by subcutane ous route. 08/31 completed Not Available Not Available Not Available Wegovy 0.5 mg/0.5 mL subcutaneou s pen injector Inject 0.5 mg every week by subcutane ous route. 09/13 completed Not Available Not Available Not Available Ozempic 0.25 mg or 0.5 mg (2 mg/3 mL) subcutaneou s pen injector active Not Available Not Available Not Available Vitals Date Recorded Body height Body mass index (BMI) Body weight Body temperature Heart rate Oxygen saturation Oxygen saturation in Arterial blood by Pulse oximetry Respiratory rate Systolic And Diastolic Provider Name and Address Organization Details Last Updated DateTime 3 187.96 cm 44.1 kg/m2 877427. 98 g 97.6 [degF] 81 /min 97 % 97 % 18 /min 128/80 mm[Hg] Shaylee Torres [place] - [facility] 3 16:24:35 Date Recorded Body height Body mass index (BMI) Body weight Body temperature Heart rate Oxygen saturation Oxygen saturation in Arterial blood by Pulse oximetry Respiratory rate Systolic And Diastolic Provider Name and Address Organization Details Last Updated DateTime 4 187.96 cm 42.6 kg/m2 612231. 67 g 97.2 [degF] 70 /min 98 % 98 % 18 /min 118/80 mm[Hg] Shaylee Torres [place] - [facility] 4 16:53:27 Date Recorded Body height Body mass index (BMI) Body weight Body temperature Heart rate Oxygen saturation Oxygen saturation in Arterial blood by Pulse oximetry Respiratory rate Systolic And Diastolic Provider Name and Address Organization Details Last Updated DateTime 3 187.96 cm 45.6 kg/m2 700829. 69 g 97 [degF] 78 /min 98 % 98 % 18 /min 138/80 mm[Hg] Shaylee Torres [place] - [facility] 3 17:29:54 Date Recorded Body height Body mass index (BMI) Body weight Heart rate Oxygen saturation Oxygen saturation in Arterial blood by Pulse oximetry Respiratory rate Systolic And Diastolic Provider Name and Address Organization Details Last Updated DateTime 4 187.96 cm 44.1 kg/m2 004816. 98 g 144 /min 98 % 98 % 18 /min 142/84 mm[Hg] Shaylee Torres [place] - [facility] 4 16:37:22 Date Recorded Body height Body mass index (BMI) Body weight Respiratory rate Oxygen saturation Oxygen saturation in Arterial blood by Pulse oximetry Heart rate Body temperature Systolic And Diastolic Provider Name and Address Organization Details Last Updated DateTime 3 187.96 cm 45.1 kg/m2 981633. 92 g 18 /min 97 % 97 % 80 /min 97.3 [degF] 142/78 mm[Hg] Lillian Deng [place] - [facility] 3 14:11:56 Social History Question Answer Notes LastModified by Organizat ion Details LastModified Time Tobacco Smoking Status Former Smoker Shaylee romo [place] - [facility] 02/24/2022 16:33:45 Do You Have An Advance Directive? No Information not available 02/24/2022 Are You Blind Or Do You Have Difficulty Seeing? No Information not available 09/13/2022 Is Blood Transfusion Acceptable In An Emergency? Yes Information not available 02/24/2022 What Is Your Level Of Caffeine Consumption? Occasional Information not available 02/24/2022 In The 14 Days Before Symptom Onset, Have You Had Close Contact With A Laboratory-confir med COVID-19 While That Case Was Ill? No Information not available 02/24/2022 In The 14 Days Before Symptom Onset, Have You Had Close Contact With A Person Who Is Under Investigation For COVID-19 While That Person Was Ill? No Information not available 02/24/2022 Have You Been To An Area Known To Be High Risk For COVID-19? No Information not available 02/24/2022 Are You Deaf Or Do You Have Serious Difficulty Hearing? No Information not available 02/24/2022 What Type Of Diet Are You Following? REGULAR Information not available 02/24/2022 Have You Processed Blood Or Body Fluids From An Ebola Virus Disease Patient Without Appropriate PPE? No Information not available 02/24/2022 Do You Reside In Or Have You Traveled To An Area Where Ebola Virus Transmission Is Active? No Information not available 02/24/2022 What Is The Highest Grade Or Level Of School You Have Completed Or The Highest Degree You Have Received? [id number] Information not available 02/24/2022 When Did You Quit Smoking? 16+yearssincel astcigarette Information not available 02/24/2022 Have You Recently Or Are You Planning To Travel To An Area With Zika Virus? No Information not available 02/24/2022 Do You Have A Medical Power Of Operations Dispatcher? No Information not available 02/24/2022 What Was The Date Of Your Most Recent Tobacco Screening? 11/16/2023 Information not available 11/16/2023 Do You Use Protection Against STDs? No Information not available 02/24/2022 What Is Your Relationship Status? Information not available 02/24/2022 Do You Use Your Seat Belt Or Car Seat Routinely? Yes Information not available 02/24/2022 Do You Have Smoke And Carbon Monoxide Detectors In Your Home? Yes Information not available 02/24/2022 Do You Use Sunscreen Routinely? Yes Information not available 02/24/2022 Has Tobacco Cessation Counseling Been Provided? No Information not available 02/24/2022 Do You Have Difficulty Walking Or Climbing Stairs? No Information not available 02/24/2022 Sex: Male Functional Status Question Answer Note LastModified by Organizat ion Details LastModified Time How many times per week do you consume alcohol? <1 time per week Information not available 02/24/2022 Do you use any illicit or recreational drugs? No Information not available 02/24/2022 What is your level of alcohol consumption? Occasional Information not available 02/24/2022 Are you currently employed? Yes Information not available 02/24/2022 Do you have transportation difficulties? No Information not available 02/24/2022 Are you able to walk? YESWOREST Information not available 02/24/2022 Do you have difficulty doing errands alone? No Information not available 02/24/2022 Are you able to care for yourself? Yes Information n ot available 09/13/2022 What is your occupation? [employer] Information not available 02/24/2022 Do you have difficulty dressing or bathing? No Information not available 02/24/2022 What is your exercise level? Moderate Information not available 02/24/2022 Mental Status Question Answer Note LastModified by Organizat ion Details LastModified Time Do you feel stressed (tense, restless, nervous, or anxious, or unable to sleep at night)? [id number] Information not available 02/24/2022 Do you have difficulty concentrating, remembering or making decisions? No Information no t available 02/24/2022 Family History Relationship Description Onset Age of this Age Resolved Age Notes LastModified by Organization Details LastModified Time Father Obesity cbuckler Not available 02/24/2022 16:29:34 Father Disease of liver cbuckler Not available 2022 16:29:34 Mother Diabetes mellitus cbuckler Not available 2022 16:29:34 Mother Obesity cbuckler Not available 02/24/2022 16:29:34 Paternal Uncle Malignant neoplasm of lung cbuckler Not available 2022 16:29:34 Medical History Condition Response Gout Y Atrial Fibrillation Y Obesity Y Heart Problems Y Sleep Apnea Y Immunizations Vaccine Type Date Status Note Provider Nam e and Address Organization Details Recorded Time Influenza, split virus, quadrivalent, preservative 3 completed Lillian Deng null, [facility] 11/24/2022 14:28:21 Influenza, split virus, trivalent, PF 7 completed Not Available [facility] 11/24/2022 13:42:42 COVID-19, mRNA, LNP-S, PF, 100 mcg/0.5mL dose or 50 mcg/0.25mL dose 1 completed Shaylee Torres null, [facility] 09/13/2022 17:24:25 COVID-19, mRNA, LNP-S, PF, 100 mcg/0.5mL dose or 50 mcg/0.25mL dose 1 completed Shaylee Torres null, [facility] 09/13/2022 17:24:25 COVID-19, mRNA, LNP-S, PF, 100 mcg/0.5mL dose or 50 mcg/0.25mL dose 1 completed Shaylee Torres null, [facility] 09/13/2022 17:24:25 pneumococcal polysaccharide PPV23 0 completed Shaylee Torrse null, [place] - [facility] 09/13/2022 17:24:25 Influenza, split virus, trivalent, preservative 1 completed Shaylee Torres null, [facility] 09/13/2022 17:24:25 Influenza, split virus, trivalent, PF 6 completed Shaylee Torres null, [facility] 09/13/2022 17:24:25 Influenza, split virus, quadrivalent, PF 2 completed Shaylee Torres null, [facility] 09/13/2022 17:24:25 Past Encounters Encounter ID Performer Location Encounter Start Date Encounter Closed Date Diagnosis/Indication Diagnosis SNOMED-CT Code Diagnosis ICD10 Code Diagnosis Note [id number] Mak Mckeon APRN [address] [address] 02/24/2022 16:17:13 02/24/2022 16:58:39 Body mass index 40+ - severely obese 576977530 Z68.41 Morbid obesity 225477796 E66.01 Prediabetes 626231181 R7 3.03 start ozempic and monitor diet closediscu ssed med and side effects with pta1c was 5.8 Pain of ri ght knee joint 1090091039 72863 M25.580 [id number] Mak Mckeon [place] [id number] 05/26/2022 16:15:44 05/26/2022 16:37:04 Body mass index 40+ - severely obese 538169830 Z68.41 talked with pharmacy- will change to wegovy at 0.5mg since he has been taking ozempic at this dose with out any issues. Morbid obesity 424520902 E66.01 [id number] Mak Mckeon [place] [id number] 09/13/2022 17:21:25 09/13/2022 17:39:03 Sleep apnea 70467849 G47.30 Obstructiv e sleep apnea syndrome 48889159 G47.33 [id number] Mak Mckeon [address] [address] 11/24/2022 13:41:55 11/24/2022 14:28:33 Obesity 505380162 E66.9 Body mass index 40+ - severely obese 701684694 Z68.42 talked with pharmacy- will change to wegovy at 0.5mg since he has been taking ozempic at this dose with out any issues. Morbid obesity 558321005 E66.01 45.1 Influenza vaccine needed 9639405425 106 Z23 Prediabetes 175448637 R7 3.03 [id number] Mak Mckeon [address] [address] 09/01/2023 16:39:14 09/11/2023 16:08:00 Prediabetes 523290019 R73.03 Low back pain 009468326 M54.50 Microscopic hematuria 19 7814956 R31.29 if symptoms worsen or no improvemen t return or go to ed [id number] Mak Mckeon APRN [address] [address] 11/16/2023 16:19:24 11/16/2023 16:58:32 Anxiety about body function or health 431002886 F41.8 discussed med with pt if symptoms worsen or no improvemen t return Health Concerns Section Related Observation LastModified by Organization Detai ls LastModified Time None Recorded Concern Status LastModified by Organization Details LastModified Time None Recorded Advance Directives Directive N: Payers Insurance Date Sequence Insurance Name Policy Number Policy Drake Covered Member ID Drake Member ID Guarantor Name 11/23/2023 1 [place] [id number] 2 Jamir Pulliam [id number] Jamir Pulliam 09/01/2023 1 [employer] (POS) Jamir Pulliam [id number] Jamir Pulliam Notes Date Note Type Note Provider Name and Address Organization Details Recorded Time 05/26/2022 text/html 46 yr old male presents for follow up on obesity and chronic conditions. pt states he has been taking ozempic for pre dm and not had any wt loss with med. pt states pharmacy called to let him know med was going to cost close to 900 and pt wants to see if he can switch to weygovy. pt can not take adipex due to cardiac issues, also not a good surgery candidate due to cardiac hx. Mak Mckeon APRN [address], [place], [address], [place] - [facility] 05/27/2022 14:36:32 09/13/2022 text/html 46 yr old male presents to follow up on sleep apnea. He needs cpap supplies ordered from [facility] [place]. Mak Mckeon APRN [address], [place], [address], [place] - [facility] 09/13/2022 17:43:52 11/24/2022 text/html Ángel is a 47 yea r old male who presents to the office today for a follow up onobesity, pt would like to increase his ozempic is tolerating wellpt aqlso would like a flu shotAt his last appt on 09-13-22 his weight was 355lbs down 4 lbs Mak Mckeon, [employer] [address], [place], [address], [facility] - [facility] 11/24/2022 14:30:38 09/01/2023 text/html Back PainReporte d bypatient.Location: pain is not radiating Severity:improving Associated Symptoms:no fever; no weak limbs; no numbness of the legs/feet; no tingling; no incontinence; no shortness of breath; no unintentional weight loss; no chills; no night sweats; no gait instability; no bowel/bladder symptoms; no recent increase in stress Prior Imaging:MRI; X-ray 47 yr old male presents for a urology referral request. He has noticed some blood in his urine and back pain, pt states symptoms do not seem to be bad and it does not feel like his normal kidney stone. Requesting urology, pt states he wants to see urology based on the blood in his urine, denies pain,urgency,freq. also needs med refill for predm. Mak Mckeon APRN [address], [place], [address], [facility] - [facility] 09/04/2023 10:05:55 11/16/2023 text/html Anxiety/Depressi onR eported bypatient.Severity: denies suicidal ideations; able to maintain relationships; does not interfere with activities of daily living Context:no major life stressors Associated Symptoms:denies homicidal ideations; no significant weight gain; no significant weight loss; no visual/auditory hallucinations; no delusions; no shortness of breath; mood good; no anxiety; no crying spells; no panic; no isolation; sleeping well; appetite good; energy good; no apathy; maintaining functionality 48 yr old male presents with a feeling of anxiety related to his a fib. He is currently wearing a heart monitor for 2 weeks and has started flecinade as needed. Patient denies any changes in lifestyle or stress. pt states he has always had anxiety but since the a fib is more freq his anxiety/panic attacks has increased. Mak Mckeon, [employer] [address], [place], [address], [facility] - [facility] 11/17/2023 10:36:23
--- NOTE | 2024-08-28 04:09 | CT_ITS ---
PROCEDURE INFORMATION: Exam: CTA Chest With Contrast Exam date and time: 08/28/2024 4:49 AM Age: 48 years old Clinical indication: Shortness of breath; Additional info: SOA x 3 wks since long flight, cough, o2 req new TECHNIQUE: Imaging protocol: Computed tomographic angiography of the chest with contrast. Exam focused on the arteries. 3D rendering (Not supervised by radiologist): MIP and/or 3D reconstructed images were created by the technologist. Radiation optimization: All CT scans at this facility use at least one of these dose optimization techniques: automated exposure control; mA and/or kV adjustment per patient size (includes targeted exams where dose is matched to clinical indication); or iterative reconstruction. Contrast material: ISOVUE; Contrast volume: 80 ml; Contrast route: INTRAVENOUS (IV); COMPARISON: CT ANGIO CHEST 07/14/2019 12:30 PM FINDINGS: Pulmonary arteries: Normal. No pulmonary emboli. Aorta: Unremarkable. No aortic aneurysm. No aortic dissection. Thyroid: The thyroid gland is diffusely enlarged although no focal lesions are noted. Lungs: Diffuse ground-glass opacity seen in the lungs bilaterally. Pleural spaces: Small to moderate bilateral pleural effusions are also present. Heart: Previously noted pericardial effusion has resolved. Aortic valve replacement. Coronary arteries: No coronary calcium. Lymph nodes: Prominent mediastinal lymph nodes are noted including a 1.6 cm precarinal lymph node, right paratracheal AP window and subcarinal nodes are also prominent, the subcarinal lymph nodes measure 2.0 cm. Bones/joints: Unremarkable. No acute fracture. Soft tissues: Unremarkable. IMPRESSION: 1. No evidence of pulmonary embolus. 2. Diffuse bilateral ground-glass opacity seen throughout all lobes with bilateral pleural effusions, suspect volume overload. 3. Aortic valve replacement. 4. No coronary calcium is noted. 5. Mild mediastinal lymphadenopathy of uncertain etiology.
[2024-08-28 04:28] LABS: Adenovirus,PCR Not Detected (NotDetected); Chlamydophila Pneumoniae, PCR Not Detected (NotDetected); Coronavirus 19, PCR Not Detected (NotDetected); Coronovirus HKU1,PCR Not Detected (NotDetected); Influenza A, PCR Not Detected (NotDetected); Influenza AH1, 2009 Not Detected (NotDetected); Influenza AH1, PCR Not Detected (NotDetected); Influenza AH3,PCR Not Detected (NotDetected); Influenza B, PCR Not Detected (NotDetected); Mycoplasma Pneumoniae, PCR Not Detected (NotDetected); Parainfluenza 1, PCR Not Detected (NotDetected); Parainfluenza 2, PCR Not Detected (NotDetected); Parainfluenza 3, PCR Not Detected (NotDetected); Parainfluenza 4, PCR Not Detected (NotDetected)
[2024-08-28 04:29] LABS: Hematocrit 41.0 % (42.0-52.0); Hemoglobin 14.1 g/dL (14.1-18.0); Immature Granulocytes % 1.2 %; Mean Corpuscular HGB Conc 34.4 g/dL (31.8-35.4); Mean Corpuscular Hemoglobin 30.3 pg (27.0-31.2); Mean Corpuscular Volume 88.0 fl (80-94); Nucleated Red Blood Cells % 0 %; Platelet Count 210 K/mm3 (142-424); Red Blood Count 4.66 M/mm3 (4.60-6.20); Red Cell Distribution Width-SD 43.8 fL; White Blood Count 10.2 K/mm3 (4.8-10.8)
[2024-08-28 04:33] LABS: Albumin Level 4.4 g/dl (3.5-5.0); Chloride 102 mmol/L (98-107); Sodium 136 mmol/L (136-145)
[2024-08-28 04:34] LABS: Potassium 4.1 mmoL/L (3.5-5.1)
[2024-08-28 04:36] LABS: Lactate Venous 1.8 mmol/L (0.4-2.0); VBG HCO3 21.8 mmol/L (23-30); VBG PCO2 34.3 mmol/L (35-51); VBG PH 7.42 mmol/L (7.31-7.41); VBG PO2 101.4 mmol/L (28-40)
[2024-08-28 04:36] LABS: Alanine Aminotransferase 37 U/L (12-78); Anion Gap 14.1 mEq/L (5-15); Aspartate Amino Transferase 44 U/L (17-59); Blood Urea Nitrogen 15 mg/dl (9-20); Carbon Dioxide 24 mmol/L (22.0-30.0); Creatinine Clearance Estimated 152 mL/min (50-200); Creatinine,Serum 0.70 mg/dl (0.66-1.25); Estimated Glomerular Filt Rate 121 ml/min (>60); GFR (African American) 146 ML/MIN (>60)
[2024-08-28 04:37] LABS: Albumin/Globulin Ratio 1.5 (1.1-1.8); Alkaline Phosphatase 61 U/L (38-126); Bilirubin,Total 0.7 mg/dl (0.2-1.3); Calcium 8.5 mg/dl (8.4-10.2); Globulin 2.9 g/dL (1.3-3.2); Glucose 124 mg/dl (74-100); Total Protein,Serum 7.3 g/dl (6.3-8.2)
--- NOTE | 2024-08-28 04:39 | ECG_ITS ---
APPROVED REPORT Exam: Resting ECG HR:72 bpm ECG Measurements Heart Rate [address] 197 P 42 QRSd 106 QRS 75 QT 386 T 224 QTc 411 Conclusion SINUS RHYTHM SEPTAL MYOCARDIAL INFARCTION , OF INDETERMINATE AGE [40+ ms Q WAVE IN V1/V2] MODERATE T-WAVE ABNORMALITY, CONSIDER LATERAL ISCHEMIA [-0.1+ mV T-WAVE IN I/aVL/V5/V6] MODERATE T-WAVE ABNORMALITY, CONSIDER INFERIOR ISCHEMIA [-0.1+ mV T-WAVE IN II/aVF] Inferior and lateral T wave inversions with slight ST depression, this is consistent with previous ECGs. There is some evidence of LVH on this ECG Electronically signed by : MIRACLE BASURTO, 08/28/2024 06:59:03
[2024-08-28 04:49] LABS: Troponin I 0.06 ng/ml (0.00-0.034)
[2024-08-28] MEDS: SODIUM CHLORIDE 0.9% 10ML SYR (RAD ONLY) 10 ML IV (04:55)
[2024-08-28] MEDS: IOPAMIDOL-370 (76%);100ML BOTTLE 80 ML IV (04:55)
[2024-08-28] MEDS: 0.9 % SODIUM CHLORIDE 50 ML VIAL IV (04:55)
[2024-08-28 05:10] LABS: NT Pro Brain Natriuretic Pep. 1200 pg/mL (0-125)
[2024-08-28] MEDS: FUROSEMIDE 40MG/4ML VIAL 40 MG IV ×3 (05:41→16:37)
--- NOTE | 2024-08-28 05:42 | HMH.EDCP ---
Discharge Plan Disposition Patient Disposition: Admitted Condition: Fair Clinical Impressions Clinical Impression: Volume overload, H/O aortic valve replacement, Heart murmur, Hypoxic respiratory failure Discharge ED Provider: Clara Tracey General Chief Complaint: Shortness of Breath/Dyspnea Stated Complaint: walking pneumonia, trouble breathing,not improving Time Seen by Provider: 08/28/24 04:00 Mode of Arrival: Ambulatory Source of Information: Patient Description of Symptoms (Recalled from ER Triage Doc. by RN): pt reports he had a ongoing cough for a week, pt was seen by his PCP on monday and started on an inhaler and antibiotics. pt reports it is worse with lying History of Present Illness HPI narrative: 48-year-old male presents to the ER for complaints of cough and shortness of breath. Patient reports 3 weeks ago they were in [place] and he had difficulty with a high altitude hike. When they returned from [place] he had shortness of breath which continued to get more and more progressive and worsened. He was seen by his PCP a few days ago and started on inhaler and antibiotics which he has been using for the last 2 days. He states he initially felt slightly improved but it was again worse tonight. It is much worse with lying flat. He reports no swelling in the legs or feet, he does have a history of aortic valve replacement due to aortic stenosis. No numbness, tingling, or weakness, no dizziness, he denies any calf pain or redness, no blood thinners, no history of DVT, patient is a type II diabetic with a history of VIRA. He denies any chest pain, he states he feels like he cannot take a full breath but does not have pain with deep breathing. Related Data Home Medications ?Medication ?Instructions ?Recorded ?Confirmed meloxicam 15 mg tablet 15 mg PO DAILY PRN 05/23/22 12/18/23 metformin 500 mg tablet,extended 500 mg PO DAILY 06/01/23 12/18/23 release 24 hr Previous Rx's ?Medication ?Instructions ?Recorded flecainide 50 mg tablet 50 mg PO Q12H PRN pafib #60 tabs 11/13/23 semaglutide (weight loss) 0.5 0.5 mg (0.5 mL) SQ WEEKLY #2 mL 12/18/23 mg/0.5 mL subcutaneous pen injector (Jayda) tirzepatide (weight loss) 5 mg/0.5 5 mg (0.5 mL) SQ WEEKLY #2.5 mL 12/20/23 mL subcutaneous solution (Zepbound) atorvastatin 20 mg tablet See Rx Instructions .Route 02/05/24 .COMPLEX #90 tabs rivaroxaban 20 mg tablet (Xarelto) See Rx Instructions .Route 03/12/24 .COMPLEX #90 tabs lisinopril 10 mg tablet See Rx Instructions .Route 05/10/24 .COMPLEX #90 tabs metoprolol succinate 100 mg 100 mg PO BID #180 tabs 08/12/24 tablet,extended release 24 hr meloxicam 15 mg tablet See Rx Instructions .Route 08/20/24 .COMPLEX #30 tabs Allergies Allergy/AdvReac Type Severity Reaction Status Date / Time No Known Allergies Allergy Verified 12/18/23 15:14 [facility] Disclaimer: The information contained in this section may have been updated after the patient was seen, as this information can be updated by other users. Medical History DM2 (diabetes mellitus, type 2) Body mass index [BMI] 40.0-44.9, adult Palpitations Fatigue Dyspnea Atrial flutter Essential hypertension VIRA (obstructive sleep apnea) Obesity Aortic stenosis Surgical History H/O aortic valve replacement Aortic valve replaced Social History Smoking Status: Never smoker alcohol intake: current alcohol intake frequency: holidays/special occasions only substance use type: denies use current occupational status: employed Travel in the last 8 weeks?: Inside the [place] household members: spouse housing: house current occupation: Manufacturing caffeine: Yes Have you lived/traveled outside US in past 30 days?: No Contact w/someone who lives/traveled outside US past 30 days?: No Exposure to someone with infectious disease in past 14 days?: No Do you have a fever (greater than 100.4 F or 38 C)?: No Have you tested positive for COVID-19?: No Exposed to someone with COVID-19 in past 14 days?: No Do you have a sore throat?: No Do you have a cough?: No Do you have any weakness?: No Do you have any diarrhea?: No Are you experiencing any unusual bleeding?: No Do you have any muscle aches/pain?: No Do you have any abdominal pain?: No Are you experiencing loss of taste or smell?: No Other Medical History Have you received the Flu Vaccine for this season: Yes Have you received the Pneumonia Vaccine: No ROS Obtained: Yes Systems reviewed as appropriate & no additional complaints except as documented per HPI Physical Exam General General appearance: alert and in no apparent distress Head Head exam: atraumatic and normocephalic Eye Eye exam: Present PERRL and EOMI ENT ENT exam: Present mucous membranes moist Neck Neck exam: Present normal inspection and full ROM Chest Chest inspection: Present symmetric chest wall rise Respiratory Respiratory exam: Present respiratory distress (86% on room air on arrival); Absent normal lung sounds bilaterally (Is bilaterally worse on the right than the left), wheezes or stridor Cardiovascular Cardiovascular exam: Present regular rate, normal rhythm and systolic murmur Abdominal Exam Abdominal exam: Present soft; Absent distention or tenderness Extremities Exam Extremities exam: Present full ROM and edema (+1 bilateral lower extremities pitting) Neurological Exam Neurological exam: Present alert and oriented X3; Absent motor sensory deficit Psychiatric Psychiatric exam: Present normal affect and normal mood Skin Skin exam: Present warm and dry HEART Score HEART Score HEART Score assessment performed?: Yes History (anamnesis): Slightly suspicious ECG: Non-specific disturbance Age: 45-65 years Risk factors: 1-2 risk factors Troponin: 1-3x normal limit HEART Score: 4 Procedures Miscellaneous Procedure Procedure Performed: Limited Cardiac Ultrasound Indication: Shortness of breath Identified cardiac views: [-Cardiac parasternal long axis] [-Cardiac parasternal short axis] [-Cardiac apical four-chamber] [-Cardiac subxiphoid] Parasternal views were limited by patient's body habitus and poor acoustic windows Findings: Cardiac activity present with no gross wall motion abnormality, no pericardial effusion, no evidence of right heart strain, there does appear to be hyperdynamic LV with evidence of LVH, EF is grossly normal Impression: Cardiac activity present with no gross wall motion abnormality, no pericardial effusion, no evidence of right heart strain, there does appear to be hyperdynamic LV with evidence of LVH, EF is grossly normal Images were saved to permanent archive The study was technically adequate CPT: 23337 This study was performed by me, and I personally interpreted all images/videos. Based on my clinical judgement, these images were adequate and did not necessitate further imaging. Limited lung ultrasound A focused ultrasound exam of the pleural spaces was performed to evaluate for pneumothorax, pulmonary edema, pleural effusion and/or consolidation. The ultrasound was performed with the following indications, as noted in the H&P: Shortness of breath Identified structures: Bilateral thoracic cavities were examined. Findings: Lung sliding: - Present bilaterally B-lines: Present throughout all lung zacarias bilaterally Pleural effusion: Absent bilaterally Consolidation: Absent bilaterally Impression: - Pneumothorax absent - Pleural effusion absent - B-lines densely present throughout bilateral lung zacarias - Consolidation absent Images were saved to permanent archive The study was technically adequate CPT 27248-88 This study was performed by me, and I personally interpreted all images/videos. Based on my clinical judgement, these images were added and did not necessitate further imaging. Critical Care Critical Care Time Critical Care Time: No Medical Decision Making Medical Records Medical records reviewed: Yes I reviewed the patient's medical records. Martell Inquiry Pt receiving controlled substance: No Vital Signs Vital Signs: 08/28/24 03:54 08/28/24 04:30 08/28/24 05:00 Temperature 98.2 F Temperature Source Oral Pulse Rate 68 72 Pulse Rate [Right] 77 Respiratory Rate 20 18 Blood Pressure 149/67 H 144/62 H Blood Pressure [Right Arm] 147/72 H Blood Pressure Mean 84 77 Blood Pressure Mean [Right Arm] 97 02 Sat by Pulse Oximetry 90 L 96 93 L Oxygen Delivery Method Room Air Nasal Cannula Oxygen Flow Rate (LPM) 2 08/28/24 05:30 08/28/24 05:45 08/28/24 06:30 Temperature Temperature Source Pulse Rate 73 72 70 Pulse Rate [Right] Respiratory Rate 18 18 Blood Pressure 141/65 H 143/64 H Blood Pressure [Right Arm] Blood Pressure Mean 83 Blood Pressure Mean [Right Arm] 02 Sat by Pulse Oximetry 93 L 96 93 L Oxygen Delivery Method Nasal Cannula Nasal Cannula Oxygen Flow Rate (LPM) 2 2 Lab Data Labs: Lab Results 08/28/24 04:02: VBG pH 7.42 H, VBG pCO2 34.3 L, VBG pO2 101.4 H, VBG HCO3 21.8 L, VBG Total CO2 22.9 L, VBG O2 Saturation 97.6 H, VBG Base Excess -2.7 L, VBG Lactic Acid 1.8 08/28/24 04:17: WBC 10.2, RBC 4.66, Hgb 14.1, Hct 41.0 L, MCV 88.0, MCH 30.3, MCHC 34.4, RDW 13.8, Plt Count 210, MPV 10.1, Neut % (Auto) 63.1, Lymph % (Auto) 23.4, [place] % (Auto) 8.2, Eos % (Auto) 3.1, Baso % (Auto) 1.0, Neut # (Auto) 6.4, Lymph # (Auto) 2.4, [place] # (Auto) 0.8, Eos # (Auto) 0.3, Baso # (Auto) 0.1, Sodium 136, Potassium 4.1, Chloride 102, Carbon Dioxide 24, Anion Gap 14.1, BUN 15, Creatinine 0.70, Estimated Creat Clear 152, Estimated GFR 121, Est GFR ( Amer) 146, Glucose 124 H, Calcium 8.5, Total Bilirubin 0.7, AST 44, ALT 37, Alkaline Phosphatase 61, Troponin I 0.06 H, NT-Pro-B Natriuret Pep 1200 H, Total Protein 7.3, Albumin 4.4, Globulin 2.9, Albumin/Globulin Ratio 1.5 08/28/24 04:17 08/28/24 04:17 Response Orders (Tests/Meds): ED MEDICATIONS Generic Name Dose Route Start Last Admin Trade Name Freq PRN Reason Stop Dose Admin Acetaminophen 650 mg 08/28/24 06:12 Acetaminophen 325mg Tab PO 09/27/24 06:11 Q4HP PRN Fever or Mild Pain (1-3) Furosemide 40 mg 08/28/24 09:00 Furosemide 40mg/4ml Vial IV 09/27/24 08:59 BIDL KULDIP Insulin Human Lispro 0 unit 08/28/24 11:00 Humalog 100 Units/Ml 10ml Vial ([facility]) SUBCUT 09/27/24 10:59 [facility] Protocol Discontinued Medications Generic Name Dose Route Start Last Admin Trade Name Freq PRN Reason Stop Dose Admin Furosemide 40 mg 08/28/24 05:34 08/28/24 05:41 Furosemide 40mg/4ml Vial IV 08/28/24 05:35 40 mg ONCE ONE Administration Iopamidol 80 ml 08/28/24 04:54 08/28/24 04:55 Iopamidol-370 (76%);100ml Bottle IV 08/28/24 04:55 80 ml ONCE ONE Administration Sodium Chloride 50 ml 08/28/24 04:54 08/28/24 04:55 0.9 % Sodium Chloride 50 Ml Vial IV 08/28/24 04:55 50 ml ONCE ONE Administration Sodium Chloride 10 ml 08/28/24 04:54 08/28/24 04:55 Sodium Chloride 0.9% 10ml Syr (Rad Only) IV 08/28/24 04:55 10 ml ONCE ONE Administration ORDERS Category Date Time Status CT angio chest PE protocol Stat Cat Scan 08/28/24 04:09 Completed Consult to Cardiology [CONS] Routine Cons 08/28/24 06:00 Active CXR 2 view (NOT portable) [XR chest 2V] Stat Exams 08/28/24 04:00 Completed POCUS Point of Care (ER Only) Stat Exams 08/28/24 05:18 Completed BNP [NT Pro Brain Natriuretic Pep.] Stat Lab 08/28/24 04:17 Completed CBC w/Auto Diff [Complete Blood Count Auto Diff] Stat Lab 08/28/24 04:17 Completed CMP [Comprehensive Metabolic Panel] Stat Lab 08/28/24 04:17 Completed Full Resp Panel w/COVID ([facility]) Routine Lab 08/28/24 04:17 Received Trop I [Troponin I] Stat Lab 08/28/24 04:17 Completed Troponin I Q3H Lab 08/28/24 07:15 Ordered Troponin I Q3H Lab 08/28/24 10:15 Ordered VBG [Venous Blood Gas] Stat RT 08/28/24 04:02 Completed MDM Narrative Medical Decision Narrative: In summary, this 48-year-old male with comorbidities described in the HPI presents to the emergency department today with shortness of breath. On initial evaluation patient is hemodynamically stable and afebrile but hypoxic on room air with mild respiratory distress, Rales throughout worse on the right than the left, mild pitting edema in the lower extremities despite patient not reporting any new swelling, remainder of exam reassuring. Differential diagnosis includes but is not limited to ACS, PE, volume overload, kidney dysfunction, pneumonia, viral syndrome. Based on these concerns, I ordered serum labs, cardiac workup, CT imaging. ECG personally interpreted demonstrates sinus rhythm, rate 72, normal axis, normal AR and QTc, patient has T wave inversions in lead to 3 and aVF as well as the lateral leads without significant ST elevation, there is no STEMI, there does appear to be evidence of LVH consistent with his history of aortic stenosis. Patient was placed on nasal cannula but no medications were initially administered upon arrival to the ER. Labs personally reviewed demonstrate no leukocytosis or anemia, normal platelets, VBG pH 7.42, no hypercarbia, VBG lactic normal at 1.8, CMP nonactionable, initial troponin 0.06 this is actually improved compared to patient's history, BNP elevated at 1200. XR personally interpreted demonstrates bilateral diffuse infiltrates concerning for pulmonary edema, see radiology read for final interpretation. CT imaging personally interpreted demonstrate no large segmental or subsegmental PE, there are groundglass opacities throughout that could be atypical pneumonia but appear more consistent with pulmonary edema. See radiology read for final interpretation which is pending at this time. Based on my personal interpretation of radiology studies, I added [id number] ultrasound to patient's workup. When I performed this, his lungs appear to demonstrate B-lines throughout consistent with pulmonary edema, cardiac ultrasound demonstrates LVH but no other acute abnormalities, see procedure note for details. With patient's elevated BNP and findings of pulmonary edema on imaging, Lasix is being administered. I am concerned for heart failure and volume overload though patient appears to have good left heart squeeze and roughly normal ejection fraction on visualization. I believe patient requires admission to the hospital for continued management of volume overload, pulmonary edema, hypoxic respiratory failure. He is agreeable to this plan. Prior to admission I consulted Dr. Truong and discussed this patient's EKG, ultrasound findings, lab findings including slightly elevated troponin and imaging findings. He agrees with the plan for diuretics, he recommends no fluids be administered to the patient. He recommends admission and plans to have echo and cardiac cath completed on the patient. He suspects that the patient's aortic stenosis has returned. I discussed these recommendations with the patient and he is agreeable. I discussed this case with the hospitalist, Jannie, who graciously accepted the patient for admission. He was admitted in stable condition.
--- NOTE | 2024-08-28 06:37 | P.HP_ITS ---
<Statement entered by Roney Yeh MD - 09/01/24 08:54> Personally examined patient and agree with plan of care as outlined by the CONSULTING SME. History of Present Illness *Admission Date: 08/28/24 *Reason for visit:: Shortness of breath *History of present illness: This is a very pleasant 48-year-old male with a past medical history of aortic valve replacement at , hypertension who presents emergency department today with shortness of breath.He reports being in [place] approximately 3 weeks ago and hiking [place] substantial [place] approximately 10,000 [place]. He states that he did exert substantial amount of energy and had to stop multiple times. He reports ongoing cough and shortness of breath since being home that has worsened. He did go see his PCP who treated him for walking pneumonia in the absence of a chest x-ray. He presented to the emergency department today with shortness of breath and noted to be hypoxic at 86% on room air. Denies any fever. Denies any chest pain. Emergency department workup notable for diffuse bilateral groundglass opacities throughout the all lobes with bilateral pleural effusions. Mildly elevated troponin at 0.06. Dr. Truong consulted and recommends IV diuresis with plans for right heart cath this admission. Hold beta-blockers and negative inotrope medications He is admitted to hospitalist service. [facility] Disclaimer: The information contained in this section may have been updated after the patient was seen, as this information can be updated by other users. Medical History DM2 (diabetes mellitus, type 2) Body mass index [BMI] 40.0-44.9, adult Palpitations Fatigue Dyspnea Atrial flutter Essential hypertension VIRA (obstructive sleep apnea) Obesity Aortic stenosis Surgical History H/O aortic valve replacement Aortic valve replaced Social History Smoking Status: Never smoker alcohol intake: current alcohol intake frequency: holidays/special occasions only substance use type: denies use current occupational status: employed Travel in the last 8 weeks?: [place] the [place] household members: spouse housing: house current occupation: Manufacturing caffeine: Yes Have you lived/traveled outside US in past 30 days?: No Contact w/someone who lives/traveled outside US past 30 days?: No Exposure to someone with infectious disease in past 14 days?: No Do you have a fever (greater than 100.4 F or 38 C)?: No Have you tested positive for COVID-19?: No Exposed to someone with COVID-19 in past 14 days?: No Do you have a sore throat?: No Do you have a cough?: No Do you have any weakness?: No Do you have any diarrhea?: No Are you experiencing any unusual bleeding?: No Do you have any muscle aches/pain?: No Do you have any abdominal pain?: No Are you experiencing loss of taste or smell?: No Other Medical History Have you received the Flu Vaccine for this season: Yes Have you received the Pneumonia Vaccine: No Review of Systems Review of Systems Review of systems:: pertinent systems reviewed and negative unless documented below Review of systems (narrative): Negative except for HPI Meds Home Medications and Allergies Home Medications ?Medication ?Instructions ?Recorded ?Confirmed ?Type meloxicam 15 mg tablet 15 mg PO DAILY PRN 05/23/22 12/18/23 History metformin 500 mg tablet,extended 500 mg PO DAILY 05/3112/18/23 History release 24 hr flecainide 50 mg tablet 50 mg PO Q12H PRN pafib #60 tabs 11/13/23 12/18/23 Rx semaglutide (weight loss) 0.5 0.5 mg (0.5 mL) SQ WEEKL Y #2 mL 12/18/23 12/18/23 Rx mg/0.5 mL subcutaneous pen injector (Wegovy) tirzepatide (weight loss) 5 mg/0.5 5 mg (0.5 mL) SQ WE EKLY #2.5 mL 12/20/23 Rx mL subcutaneous solution (Zepbound) atorvastatin 20 mg tablet See Rx Instructions .Route 1 04/07/23 Rx .COMPLEX #90 tabs rivaroxaban 20 mg tablet (Xarelto) See Rx Instructions .Route 03/12/24 Rx .COMPLEX #90 tabs lisinopril 10 mg tablet See Rx Instructions .Route 0 05/10/24 Rx .COMPLEX #90 tabs metoprolol succinate 100 mg 100 mg PO BID #180 tabs Rx tablet,extended release 24 hr meloxicam 15 mg tablet See Rx Instructions .Route 0 08/20/24 Rx .COMPLEX #30 tabs New Prescriptions to Start Prescriptions: Allergies Allergy/AdvReac Type Severity Reaction Status Date / Time No Known Allergies Allergy Verified 12/18/23 15:14 Exam Data for Last 24 hours Vital signs and Labs for Last 24 Hours: Temp Pulse Resp BP Pulse Ox O2 Del Method O2 Flow Rate 98.2 F 72 18 141/65 H 96 Nasal Cannula 2 08/28/24 03:54 08/28/24 05:45 08/28/24 05:45 08/28/24 05:30 08/28/24 05:45 08/28/24 05:45 08/28/24 05:45 Laboratory Results - last 24 hr 08/28/24 04:02: VBG pH 7.42 H, VBG pCO2 34.3 L, VBG pO2 101.4 H, VBG HCO3 21.8 L , VBG Total CO2 22.9 L, VBG O2 Saturation 97.6 H, VBG Base Excess -2.7 L, VBG Lactic Acid 1.8 08/28/24 04:17: WBC 10.2, RBC 4.66, Hgb 14.1, Hct 41.0 L, MCV 88.0, MCH 30.3, MCHC 34.4, RDW 13.8, Plt Count 210, MPV 10.1, Neut % (Auto) 63.1, Lymph % (Auto) 23.4, [place] % (Auto) 8.2, Eos % (Auto) 3.1, Baso % (Auto) 1.0, Neut # (Auto) 6.4, Lymph # (Auto) 2.4, [place] # (Auto) 0.8, Eos # (Auto) 0.3, Baso # (Auto) 0.1, Sodium 136, Potassium 4.1, Chloride 102, Carbon Dioxide 24, Anion Gap 14.1, BUN 15, Creatinine 0.70, Estimated Creat Clear 152, Estimated GFR 121, Est GFR ( Amer) 146, Glucose 124 H, Calcium 8.5, Total Bilirubin 0.7, AST 44, ALT 37, Alkaline Phosphatase 61, Troponin I 0.06 H, NT-Pro-B Natriuret Pep 1200 H, Total Protein 7.3, Albumin 4.4, Globulin 2.9, Albumin/Globulin Ratio 1.5 I & O for Last 24 hours: Intake & Output 08/25/24 08/26/24 08/27/24 08/28/24 23:59 23:59 23:59 23:59 Output Total 550 / 550 Balance -550 / -550 Weight 154.221 kg Constitutional Constitutional: no acute distress *Routine HEENT Exam Head: Present normocephalic Eye: Present EOMI and PERRL ENT: Present mucous membranes moist *Routine Neck Exam Neck: Present supple; Absent lymphadenopathy *Routine Respiratory Exam Respiratory: Present CTA bilaterally *Routine Cardiovascular Exam Cardiovascular: Present RRR *Routine Abdominal Exam Abdominal: Present soft and normoactive bowel sounds; Absent tenderness *Routine Rectal Exam Rectal:: deferred *Routine Genitalia Exam Genitalia:: deferred *Routine Extremities Exam Extremities: Absent cyanosis, clubbing or edema *Routine Skin Exam Skin: Present warm; Absent rash *Routine Neurological Exam Neurological: Present alert and oriented X3 Assessment and Plan *Assessment and plan (1) Hypoxic respiratory failure: Status: Acute Category: Medical Code(s): J96.91 - Respiratory failure, unspecified with hypoxia (2) Volume overload: Status: Acute Category: Medical Code(s): E87.70 - Fluid overload, unspecified (3) Body mass index [BMI] 40.0-44.9, adult: Status: Acute Category: Medical Code(s): Z68.41 - Body mass index [BMI] 40.0-44.9, adult (4) H/O aortic valve replacement: Status: Chronic Category: Surgical Code(s): Z95.2 - Presence of prosthetic heart valve (5) Pleural effusion: Status: Acute Category: Medical Code(s): J90 - Pleural effusion, not elsewhere classified Plan #Hypoxic respiratory failure #Volume overload #Pleural effusion Hypoxic to 86% on room air. Requiring 2 L nasal cannula at this time. CT imaging with volume overload and pleural effusions. Dr. Truong consulted, recommends IV diuresis and plan for heart cath this hospitalization Continue Lasix 40 mg twice daily Hold beta-juan carlos Will hold Xarelto today in the event patient does go for heart cath #NSTEMI Likely type II due to volume overload Denies chest pain. Cardiology consult did and following #Obesity Recently started GLP-1. Will hold inpatient. Continue at discharge
[2024-08-28 07:48] LABS: Troponin I 0.06 ng/ml (0.00-0.034)
--- NOTE | 2024-08-28 07:48 | PC.NURSE ---
arrived to floor by w/c from ED
--- NOTE | 2024-08-28 08:18 | CA_ITS ---
APPROVED REPORT EXAM: Comprehensive 2D, Doppler, and color-flow Echocardiogram with contrast Lapidarist: Sonja Thompson CRT Ht: 6 ft 2 in Wt: 326lbs BSA: 2.68 BP: 141/65 mmHg Indications: SOB, UK AVR MAR 09 ABLATION, AFIB, TETE PLEURAL EFFUSIONS DEFINITY GIVEN Echo Enhancing Agent Indication: Endocardial border delineation Agent(s) / Amount(s) Used: Definity 2 cc 2D Dimensions LA Volume 81.30 mL LA Volume Index 29.70 mL/m2 (M/F) 16-34 M-Mode Dimensions RVDd 3.41 cm (0.9-2.6) LA Diam 5.41 cm (1.9-4.0) LVDd 5.05 cm (3.5-5.7) LVDs 3.27 cm (3.5-5.7) IVSd 2.66 cm (0.6-1.1) PWd 1.73 cm (0.6-1.1) EF (Teich) 64.30% FS 35.20% EDV (Teich) 121.00 mL TAPSE 1.83 (<1.7) ESV (Teich) 43.20 mL LV Diastology E Decel Time 153 (160-240 msec) E/A Ratio 2.92 MED A' 7.80 cm/s LAT A' 6.20 cm/s Aortic Valve JAX Index 0.36 cm2/m2 AoV Peak Janak. 487.0 (50-130 cm/s) AO Peak GR. 95.20 mmHg AO Mean GR. 58.70 (<5 mmHg) AO VTI 97.3 (18-25 cm) JAX (VTI) 0.98 (2.5-4.5 cm2) Mitral Valve MV E Max Janak. 100.0 (40-130 cm/s) MV A Velocity 34.0 (40-130 cm/s) E/A Ratio 2.92 MV PHT 45.0 ms Pulmonary Valve PV Peak Velocity 116.0 (50-150 cm/s) Tricuspid Valve TR P. Velocity 272.00 cm/s RAP Estimate 10.00 mmHg RVSP 39.50 mmHg Left Ventricle The left ventricle is normal size. The left ventricular systolic function is normal. The left ventricular ejection fraction is within the normal range. There is increased LV wall thickness. There is normal LV segmental wall motion. Diastolic function is indeterminate. LVEF is 55%. Right Ventricle The right ventricle is normal size. The right ventricular systolic function is normal. Atria Left atrium is mildly dilated. Right atrium is mildly dilated. There is no Doppler evidence of interatrial shunt. Aortic Valve s/p bioprosthetic AVR (27 mm). The bioprosthetic valve is thickened with restricted leaflet motion. Severe aortic stenosis is present. Peak velocity 4.7 m/s. Mean AV gradient 44 mmHg. Max AV gradient 88 mmHg. DVI=0.28. Acceleration time 108 ms. Moderate aortic regurgitation. No clear evidence of vegetations or thrombi. Mitral Valve The mitral valve leaflets are mildly thickened. No evidence of mitral valve stenosis. Mild mitral regurgitation. Tricuspid Valve Tricuspid valve is grossly normal in structure and function. Trace tricuspid regurgitation. There is insufficient TR jet to estimate RVSP. Pulmonic Valve The pulmonary valve is normal in structure. Trace pulmonic regurgitation. Great Vessels The aortic root is normal in size. IVC is normal in size and collapses >50% with inspiration. Pericardium There is no pericardial effusion. Other Information Study Quality: Fair Conclusion Normal biventricular systolic function. Biatrial dilation. s/p bioprosthetic AVR (27 mm). Thickened AV leaflets with restricted motion. Moderate AI. Severe (peak velocity 4.7 m/s. Mean AV gradient 44 mmHg. Max AV gradient 88 mmHg. Acceleration time 108 ms. DVI 0.28). Mild MR. Compared to prior study from 11/29/2023, the aortic valve stenosis and regurgitation are now worse. ADRIAN is suggested. Early referral for interventional vs. surgical evaluation are recommended. Electronically signed by : Saba Asencio MD 08/28/2024 15:40:04
--- NOTE | 2024-08-28 08:21 | EXP.CARD.CON ---
History of Present Illness History of Present Illness Consult date: 08/28/24 Requesting physician: Roney Yeh Consult reason: congestive heart failure, known to you and shortness of breath Chief complaint: SOA Additional Medical History:: 1. History of normal coronaries, 06/2019 2. Surgically placed Prosthetic AVR, 06/2019, Dr. Streeter, using 27 mm Magna Ease pericardial prosthesis 3. HTN 4. History of A. fib, S/P ablation, Dr. Lewis, early 2024 5. HLD 6. obesity History of present illness: 48 yo WM admitted through the ED for increasing SOA over the last couple of weeks. Treated for walking pneumonia earlier this week with antibiotic and steroid shot without lasting improvement. ED evaluation revealed volume overload on CXR and Chest CTA with elevated BNP and mildly elevated troponins (0.06). Admitted for further evaluation. Given IV lasix with good urine output and improvement in symptoms. Plan per Dr. Turong is for Right heart cath. [facility] Disclaimer: The information contained in this section may have been updated after the patient was seen, as this information can be updated by other users. Medical History (Updated 08/28/24 @ 09:10 by Monika Munson RN) HTN (hypertension) HLD (hyperlipidemia) DM2 (diabetes mellitus, type 2) Body mass index [BMI] 40.0-44.9, adult Palpitations Fatigue Dyspnea Atrial flutter Essential hypertension VIRA (obstructive sleep apnea) Obesity Surgical History (Updated 08/28/24 @ 09:10 by Monika Munson, RN) History of cardiac ablation for atrial fibrillation History of colon resection H/O aortic valve replacement Family History (Updated 08/28/24 @ 09:09 by Monika Munson RN) Other FH: diabetes mellitus FH: heart disease FH: heart failure FH: kidney cancer FH: lung cancer Social History (Updated 08/28/24 @ 08:51 by Monika Munson RN) Smoking Status: Never smoker alcohol intake: never substance use type: denies use current occupational status: employed Travel in the last 8 weeks?: Outside the [facility] household members: spouse housing: house current occupation: Manufacturing caffeine: Yes Have you lived/traveled outside [place] in past 30 days?: No Contact w/someone who lives/traveled outside [place] past 30 days?: No Exposure to someone with infectious disease in past 14 days?: No Do you have a fever (greater than 100.4 F or 38 C)?: No Have you tested positive for COVID-19?: No Exposed to someone with COVID-19 in past 14 days?: No Do you have a sore throat?: No Do you have a cough?: Yes Do you have any weakness?: No Do you have any diarrhea?: No Are you experiencing any unusual bleeding?: No Do you have any muscle aches/pain?: No Do you have any abdominal pain?: No Are you experiencing loss of taste or smell?: No Review of Systems Review of Systems Review of systems:: pertinent systems reviewed and negative unless documented below *Cardiovascular Cardiovascular: Denies chest pain, Reports dyspnea, Reports dyspnea on exertion and Reports orthopnea *Respiratory Respiratory: Reports dyspnea and Reports dyspnea on exertion Exam Data for Last 24 hours Vital signs and Labs for Last 24 Hours: Temp Pulse Resp BP Pulse Ox O2 Del Method O2 Flow Rate 98.1 F 74 17 146/59 H 94 L Room Air 2 08/28/24 07:53 08/28/24 07:53 08/28/24 07:53 08/28/24 07:53 08/28/24 07:53 08/28/24 07:53 08/28/24 07:47 Laboratory Results - last 24 hr 08/28/24 04:02: VBG pH 7.42 H, VBG pCO2 34.3 L, VBG pO2 101.4 H, VBG HCO3 21.8 L, VBG Total CO2 22.9 L, VBG O2 Saturation 97.6 H, VBG Base Excess -2.7 L, VBG Lactic Acid 1.8 08/28/24 04:17: WBC 10.2, RBC 4.66, Hgb 14.1, Hct 41.0 L, MCV 88.0, MCH 30.3, MCHC 34.4, RDW 13.8, Plt Count 210, MPV 10.1, Neut % (Auto) 63.1, Lymph % (Auto) 23.4, [place] % (Auto) 8.2, Eos % (Auto) 3.1, Baso % (Auto) 1.0, Neut # (Auto) 6.4, Lymph # (Auto) 2.4, [place] # (Auto) 0.8, Eos # (Auto) 0.3, Baso # (Auto) 0.1, Sodium 136, Potassium 4.1, Chloride 102, Carbon Dioxide 24, Anion Gap 14.1, BUN 15, Creatinine 0.70, Estimated Creat Clear 152, Estimated GFR 121, Est GFR ( Amer) 146, Glucose 124 H, Calcium 8.5, Total Bilirubin 0.7, AST 44, ALT 37, Alkaline Phosphatase 61, Troponin I 0.06 H, NT-Pro-B Natriuret Pep 1200 H, Total Protein 7.3, Albumin 4.4, Globulin 2.9, Albumin/Globulin Ratio 1.5, Chlamy pneumoniae PCR Not detected, Adenovirus (PCR) Not detected, B. pertussis DNA (PCR) Not detected, Coronavirus OC43 (PCR) Not detected, Coronavirus HKU1 (PCR) Not detected, Coronavirus 229E (PCR) Not detected, SARS-CoV-2 (PCR) Not detected, Coronavirus NL63 (PCR) Not detected, Human Metapneumovir PCR Not detected, Influenza A (H1) PCR Not detected, Influ A (H1N1/09) PCR Not detected, Influenza A (H3) PCR Not detected, Influenza Type A (PCR) Not detected, Influenza Type B (PCR) Not detected, M. pneumoniae (PCR) Not detected, Parainfluenza 1 (PCR) Not detected, Parainfluenza 2 (PCR) Not detected, Parainfluenza 3 (PCR) Not detected, Parainfluenza 4 (PCR) Not detected, RSV (PCR) Not detected, Entero/Rhino (PCR) Not detected 08/28/24 07:05: Troponin I 0.06 H I & O for Last 24 hours: Intake & Output 08/25/24 08/26/24 08/27/24 08/28/24 11:59 11:59 11:59 11:59 Output Total 1849 / 1849 Balance -1849 / -1849 Weight 326 lb 12.8 oz Constitutional Constitutional: no acute distress *Routine Respiratory Exam Respiratory: Present CTA bilaterally; Absent wheezes or crackles *Routine Cardiovascular Exam Cardiovascular: Present RRR and murmur; Absent gallop or rubs *Routine Extremities Exam Extremities: Present edema *Routine Neurological Exam Neurological: Present alert, oriented X3 and CN II-XII intact Meds Home Medications and Allergies Home Medications ?Medication ?Instructions ?Recorded ?Confirmed ?Type meloxicam 15 mg tablet 15 mg PO DAILY 05/23/22 08/28/24 History metformin 500 mg tablet,extended 500 mg PO HS 06/01/23 08/28/24 History release 24 hr albuterol sulfate 90 mcg/actuation 2 puff inhalation Q4HP PRN 08/28/24 08/28/24 History aerosol inhaler Shortness Of Breath atorvastatin 20 mg tablet 20 mg PO HS 08/28/24 08/28/24 History doxycycline monohydrate 100 mg 100 mg PO BID 08/28/24 08/28/24 History capsule lisinopril 10 mg tablet 10 mg PO HS 08/28/24 08/28/24 History metoprolol succinate 100 mg 100 mg PO HS 08/28/24 08/28/24 History tablet,extended release 24 hr omega 6-dau-gpt-fish oil 1,000 mg 1 cap PO HS 08/28/24 08/28/24 History (120 mg-180 mg) capsule (Fish Oil) rivaroxaban 20 mg tablet (Xarelto) 20 mg PO QPMWITHMEAL 08/28/24 08/28/24 History New Prescriptions to Start Prescriptions: Allergies Allergy/AdvReac Type Severity Reaction Status Date / Time No Known Allergies Allergy Verified 12/18/23 15:14 Assessment and Plan *Assessment and plan (1) Volume overload: Status: Acute Qualifiers: Hypervolemia type: other Qualified Code(s): E87.79 - Other fluid overload Category: Medical Code(s): E87.70 - Fluid overload, unspecified (2) Dyspnea: Status: Acute Qualifiers: Dyspnea type: dyspnea on exertion Qualified Code(s): R06.00 - Dyspnea, unspecified Category: Medical Code(s): R06.00 - Dyspnea, unspecified (3) H/O aortic valve replacement: Status: Chronic Category: Surgical Code(s): Z95.2 - Presence of prosthetic heart valve (4) Essential hypertension: Status: Chronic Category: Medical Code(s): I10 - Essential (primary) hypertension (5) VIRA (obstructive sleep apnea): Status: Chronic Category: Medical Code(s): G47.33 - Obstructive sleep apnea (adult) (pediatric) (6) Obesity: Status: Chronic Qualifiers: Body mass index: BMI 40.0-44.9 Obesity classification: adult class 3 (BMI >= 40) Obesity type: due to excess calories Serious obesity comorbidity presence: with serious comorbidity Qualified Code(s): E66.01 - Morbid (severe) obesity due to excess calories; Z68.41 - Body mass index (BMI) 40.0-44.9, adult Category: Medical Code(s): E66.9 - Obesity, unspecified Plan 1. Volume overload/CHF -improved with IV lasix -check echo due to concern for recurrent aortic stenosis of prosthetic valve -plan for C 2. Prosthetic AVR, 06/2019 -check echo to assess function 3. History of A. fib with ablation earlier this year -continue Xarelto and metoprolol 4. History of normal coronary arteries by cath 2019 -mildly elevated troponins at 0.06, likely due to volume overload/CHF 5. HTN -continue lisinopril and metoprolol 6. HLD -continue statin 7. VIRA, CPAP therapy check echo plan for LHC today since patient likely has recurrent severe and the question is whether or not he needs CABG at the same time as repeat valve surgery.
[2024-08-28 08:41] LABS: Cholesterol 142 mg/dl (140-200); HDL Cholesterol 30 mg/dl (40-60); Triglycerides 91 mg/dl (30-150)
[2024-08-28 09:24] LABS: Thyroid Stimulating Hormone 3.57 uIU/mL (0.465-4.68)
--- NOTE | 2024-08-28 09:26 | HMH.PHAINT1 ---
Pharmacy Intervention Comments: MEDICATION RECONCILIATION COMPLETED ON PATIENT USING EXTERNAL FILL HISTORY FROM PHARMACY. -BENY SAUCEDO, JACKLYND
[2024-08-28] MEDS: ASPIRIN EC 81MG TABLET 81 MG PO (09:40)
--- NOTE | 2024-08-28 10:14 | IR_ITS ---
APPROVED REPORT Patient Location: Inpatient Mixing Machine Operator: HENRIQUE An RT (R) PROCEDURES Left heart catheterization Selective coronary angiogram INDICATION Severe aortic stenosis, Preoperative evaluation for aortic valve replacement Informed consent was obtained prior to the procedure. COMPLICATIONS None Estimated Blood Loss: Less than 10 mls TECHNIQUE One percent lidocaine used to anesthetize the right anterior aspect of the wrist. The right radial artery was accessed via the Seldinger technique. A 6 Chinese sheath was placed in the right radial artery. 2.5 mg of Verapamil, 800 mcg of nitroglycerin, 1mg Lidocaine and 5000 U Heparin were given through the arterial sheath. The JL3 catheter was also used to perform left heart catheterization and selective coronary angiogram. At the end of the procedure the sheath was removed good hemostasis was achieved using Traclet band, patient was transferred to the postop holding area in stable condition. ANGIOGRAPHIC RESULTS The left main artery Normal The left anterior descending artery Normal The circumflex artery Normal The right coronary artery Dominant normal The JARRETT ventriculogram reveals Not performed The left ventricular end-diastolic pressure 20 mmHg 80 mm trans stenotic gradient across aortic valve with a 6 Chinese JL 3 guide catheter IMPRESSION Normal coronary arteries Severe aortic valve stenosis PLAN 1. Aortic valve replacement required. Given patient's new onset congestive heart failure I recommend valve replacement be considered this index hospitalization Electronically signed by : Kirill Truong MD 08/28/2024 13:04:25
[2024-08-28 10:19] LABS: Hemoglobin A1C 6.7 % (4.0-6.0)
[2024-08-28] MEDS: LISINOPRIL 10MG TABLET 10 MG PO (10:31)
[2024-08-28] MEDS: METOPROLOL SUCCINATE XL 50MG TABLET 50 MG PO (10:31)
[2024-08-28] MEDS: DEFINITY US ECHO CONTRAST 2ML INJ 2 MG IV (10:44)
[2024-08-28 10:47] LABS: Troponin I 0.06 ng/ml (0.00-0.034)
[2024-08-28 11:46] LABS: POC Glucose,Bedside 144 (70-110)
[2024-08-28] MEDS: 0.9 % SODIUM CHLORIDE 500 ML 25 ML IV (12:31)
[2024-08-28] MEDS: LIDOCAINE 1% 10ML MDV 10 ML IJ (12:32)
[2024-08-28] MEDS: VERAPAMIL 2.5MG/ML 2ML VIAL 2.5 MG IV (12:32)
[2024-08-28] MEDS: HEPARIN 1,000 UNITS/ML 10ML VIAL (CATH LAB) 5000 UNIT IV (12:32)
[2024-08-28] MEDS: HEPARIN 1,000 UNITS/500ML NS (CATH LAB) 3000 UNIT IV (12:34)
[2024-08-28] MEDS: NITROGLYCERIN 800MCG/8ML SYR (CATH LAB) 800 MCG IA (12:34)
[2024-08-28] MEDS: MIDAZOLAM HCL 1MG/ML 5ML VIAL 1 MG IV (13:02)
[2024-08-28] MEDS: FENTANYL 100MCG/2ML VIAL 50 MCG IV (13:03)
[2024-08-28] MEDS: IOPAMIDOL-370 (76%);100ML BOTTLE 70 ML IV (13:48)
[2024-08-28 16:14] LABS: POC Glucose,Bedside 118 (70-110)
--- NOTE | 2024-08-28 19:18 | PC.NURSE ---
pt is A&Ox4. Vital signs stable tolerating room air. IV lasix given per MAR with adequate output. Pt had a heart cath today. Right radial site with tegaderm and gauze c/d/i. Pt has sat up in the chair most of the day. No complaints of SOB. Pt currently sitting up in the chair resting comfortably with no further needs voiced at this time. Call light within reach.
--- NOTE | 2024-08-28 19:58 | EXP.DC.SUM ---
General Admission date:: 08/28/24 HPI HPI HPI: This is a very pleasant 48-year-old male with a past medical history of aortic valve replacement at , hypertension who presents emergency department today with shortness of breath.He reports being in [place] approximately 3 weeks ago and [place],000 [place]. He states that he did exert substantial amount of energy and had to stop multiple times. He reports ongoing cough and shortness of breath since being home that has worsened. He did go see his PCP who treated him for walking pneumonia in the absence of a chest x-ray. He presented to the emergency department today with shortness of breath and noted to be hypoxic at 86% on room air. Denies any fever. Denies any chest pain. Emergency department workup notable for diffuse bilateral groundglass opacities throughout the all lobes with bilateral pleural effusions. Mildly elevated troponin at 0.06. Dr. Truong consulted and recommends IV diuresis with plans for right heart cath this admission. Hold beta-blockers and negative inotrope medications He is admitted to hospitalist service. Hospital Course Hospital Course Hospital Course: Total time spent on discharge: 32 minutes on chart review, counseling, documentation, and direct care with patient. Exam Data for Last 24 hours Vital signs and Labs for Last 24 Hours: Temp Pulse Resp BP Pulse Ox O2 Del Method O2 Flow Rate 97.8 F 75 21 141/66 H 92 L Room Air 2 08/28/24 18:20 08/28/24 19:20 08/28/24 19:20 08/28/24 19:20 08/28/24 19:20 08/28/24 19:20 08/28/24 14:05 Laboratory Results - last 24 hr 08/28/24 04:02: VBG pH 7.42 H, VBG pCO2 34.3 L, VBG pO2 101.4 H, VBG HCO3 21.8 L, VBG Total CO2 22.9 L, VBG O2 Saturation 97.6 H, VBG Base Excess -2.7 L, VBG Lactic Acid 1.8 08/28/24 04:17: WBC 10.2, RBC 4.66, Hgb 14.1, Hct 41.0 L, MCV 88.0, MCH 30.3, MCHC 34.4, RDW 13.8, Plt Count 210, MPV 10.1, Neut % (Auto) 63.1, Lymph % (Auto) 23.4, Whiteside % (Auto) 8.2, Eos % (Auto) 3.1, Baso % (Auto) 1.0, Neut # (Auto) 6.4, Lymph # (Auto) 2.4, Whiteside # (Auto) 0.8, Eos # (Auto) 0.3, Baso # (Auto) 0.1, Sodium 136, Potassium 4.1, Chloride 102, Carbon Dioxide 24, Anion Gap 14.1, BUN 15, Creatinine 0.70, Estimated Creat Clear 152, Estimated GFR 121, Est GFR ( Amer) 146, Glucose 124 H, Hemoglobin A1c 6.7 H, Calcium 8.5, Total Bilirubin 0.7, AST 44, ALT 37, Alkaline Phosphatase 61, Troponin I 0.06 H, NT-Pro-B Natriuret Pep 1200 H, Total Protein 7.3, Albumin 4.4, Globulin 2.9, Albumin/Globulin Ratio 1.5, Chlamy pneumoniae PCR Not detected, Adenovirus (PCR) Not detected, B. pertussis DNA (PCR) Not detected, Coronavirus OC43 (PCR) Not detected, Coronavirus HKU1 (PCR) Not detected, Coronavirus 229E (PCR) Not detected, SARS-CoV-2 (PCR) Not detected, Coronavirus NL63 (PCR) Not detected, Human Metapneumovir PCR Not detected, Influenza A (H1) PCR Not detected, Influ A (H1N1/09) PCR Not detected, Influenza A (H3) PCR Not detected, Influenza Type A (PCR) Not detected, Influenza Type B (PCR) Not detected, M. pneumoniae (PCR) Not detected, Parainfluenza 1 (PCR) Not detected, Parainfluenza 2 (PCR) Not detected, Parainfluenza 3 (PCR) Not detected, Parainfluenza 4 (PCR) Not detected, RSV (PCR) Not detected, Entero/Rhino (PCR) Not detected 08/28/24 07:05: Troponin I 0.06 H, Triglycerides 91, Cholesterol 142, LDL Cholesterol Direct 83.40 L, VLDL Cholesterol 18, HDL Cholesterol 30 L, Cholesterol/HDL Ratio 4.7 H, TSH 3.57 08/28/24 10:18: Troponin I 0.06 H 08/28/24 11:08: POC Glucose 144 H 08/28/24 16:03: POC Glucose 118 H I & O for Last 24 hours: Intake & Output 08/25/24 08/26/24 08/27/24 08/28/24 23:59 23:59 23:59 23:59 Intake Total 270 / 270 Output Total 6050 / 6050 Balance -5780 / -5780 Weight 148.234 kg Results Data Completed and Pending Labs on day of discharge: Labs from last 24 hours 08/28/24 08/28/24 08/28/24 16:03 11:08 10:18 WBC RBC Hgb Hct MCV MCH MCHC RDW Plt Count MPV Neut % (Auto) Lymph % (Auto) Whiteside % (Auto) Eos % (Auto) Baso % (Auto) Neut # (Auto) Lymph # (Auto) Whiteside # (Auto) Eos # (Auto) Baso # (Auto) VBG pH VBG pCO2 VBG pO2 VBG HCO3 VBG Total CO2 VBG O2 Saturation VBG Base Excess VBG Lactic Acid Sodium Potassium Chloride Carbon Dioxide Anion Gap BUN Creatinine Estimated Creat Clear Estimated GFR Est GFR ( Amer) Glucose POC Glucose 118 H 144 H Hemoglobin A1c Calcium Total Bilirubin AST ALT Alkaline Phosphatase Troponin I 0.06 H NT-Pro-B Natriuret Pep Total Protein Albumin Globulin Albumin/Globulin Ratio Triglycerides Cholesterol LDL Cholesterol Direct VLDL Cholesterol HDL Cholesterol Cholesterol/HDL Ratio TSH Chlamy pneumoniae PCR Adenovirus (PCR) B. pertussis DNA (PCR) Coronavirus OC43 (PCR) Coronavirus HKU1 (PCR) Coronavirus 229E (PCR) SARS-CoV-2 (PCR) Coronavirus NL63 (PCR) Human Metapneumovir PCR Influenza A (H1) PCR Influ A (H1N1/09) PCR Influenza A (H3) PCR Influenza Type A (PCR) Influenza Type B (PCR) M. pneumoniae (PCR) Parainfluenza 1 (PCR) Parainfluenza 2 (PCR) Parainfluenza 3 (PCR) Parainfluenza 4 (PCR) RSV (PCR) Entero/Rhino (PCR) 08/28/24 08/28/24 08/28/24 07:05 04:17 04:02 WBC 10.2 RBC 4.66 Hgb 14.1 Hct 41.0 L MCV 88.0 MCH 30.3 MCHC 34.4 RDW 13.8 Plt Count 210 MPV 10.1 Neut % (Auto) 63.1 Lymph % (Auto) 23.4 Whiteside % (Auto) 8.2 Eos % (Auto) 3.1 Baso % (Auto) 1.0 Neut # (Auto) 6.4 Lymph # (Auto) 2.4 Whiteside # (Auto) 0.8 Eos # (Auto) 0.3 Baso # (Auto) 0.1 VBG pH 7.42 H VBG pCO2 34.3 L VBG pO2 101.4 H VBG HCO3 21.8 L VBG Total CO2 22.9 L VBG O2 Saturation 97.6 H VBG Base Excess -2.7 L VBG Lactic Acid 1.8 Sodium 136 Potassium 4.1 Chloride 102 Carbon Dioxide 24 Anion Gap 14.1 BUN 15 Creatinine 0.70 Estimated Creat Clear 152 Estimated GFR 121 Est GFR ( Amer) 146 Glucose 124 H POC Glucose Hemoglobin A1c 6.7 H Calcium 8.5 Total Bilirubin 0.7 AST 44 ALT 37 Alkaline Phosphatase 61 Troponin I 0.06 H 0.06 H NT-Pro-B Natriuret Pep 1200 H Total Protein 7.3 Albumin 4.4 Globulin 2.9 Albumin/Globulin Ratio 1.5 Triglycerides 91 Cholesterol 142 LDL Cholesterol Direct 83.40 L VLDL Cholesterol 18 HDL Cholesterol 30 L Cholesterol/HDL Ratio 4.7 H TSH 3.57 Chlamy pneumoniae PCR Not detected Adenovirus (PCR) Not detected B. pertussis DNA (PCR) Not detected Coronavirus OC43 (PCR) Not detected Coronavirus HKU1 (PCR) Not detected Coronavirus 229E (PCR) Not detected SARS-CoV-2 (PCR) Not detected Coronavirus NL63 (PCR) Not detected Human Metapneumovir PCR Not detected Influenza A (H1) PCR Not detected Influ A (H1N1/09) PCR Not detected Influenza A (H3) PCR Not detected Influenza Type A (PCR) Not detected Influenza Type B (PCR) Not detected M. pneumoniae (PCR) Not detected Parainfluenza 1 (PCR) Not detected Parainfluenza 2 (PCR) Not detected Parainfluenza 3 (PCR) Not detected Parainfluenza 4 (PCR) Not detected RSV (PCR) Not detected Entero/Rhino (PCR) Not detected DS: Diagnosis Discharge Diagnosis (1) Volume overload: Status: Acute Code(s): E87.70 - Fluid overload, unspecified Qualifiers: Hypervolemia type: other Qualified Code(s): E87.79 - Other fluid overload (2) Dyspnea: Status: Acute Code(s): R06.00 - Dyspnea, unspecified Qualifiers: Dyspnea type: dyspnea on exertion Qualified Code(s): R06.00 - Dyspnea, unspecified (3) H/O aortic valve replacement: Status: Chronic Code(s): Z95.2 - Presence of prosthetic heart valve (4) Essential hypertension: Status: Chronic Code(s): I10 - Essential (primary) hypertension (5) VIRA (obstructive sleep apnea): Status: Chronic Code(s): G47.33 - Obstructive sleep apnea (adult) (pediatric) (6) Obesity: Status: Chronic Code(s): E66.9 - Obesity, unspecified Qualifiers: Body mass index: BMI 40.0-44.9 Obesity classification: adult class 3 (BMI >= 40) Obesity type: due to excess calories Serious obesity comorbidity presence: with serious comorbidity Qualified Code(s): E66.01 - Morbid (severe) obesity due to excess calories; Z68.41 - Body mass index (BMI) 40.0-44.9, adult Meds Home Medications and Allergies Home Medications ?Medication ?Instructions ?Recorded ?Confirmed ?Type meloxicam 15 mg tablet 15 mg PO DAILY 05/23/22 08/28/24 History metformin 500 mg tablet,extended 500 mg PO HS 06/01/23 08/28/24 History release 24 hr albuterol sulfate 90 mcg/actuation 2 puff inhalation Q4HP PRN 08/28/24 08/28/24 History aerosol inhaler Shortness Of Breath atorvastatin 20 mg tablet 20 mg PO HS 08/28/24 08/28/24 History doxycycline monohydrate 100 mg 100 mg PO BID 08/28/24 08/28/24 History capsule lisinopril 10 mg tablet 10 mg PO HS 08/28/24 08/28/24 History metoprolol succinate 100 mg 100 mg PO HS 08/28/24 08/28/24 History tablet,extended release 24 hr omega 8-zwz-[id number]-fish oil 1,000 mg 1 cap PO HS 08/28/24 08/28/24 History (120 mg-180 mg) capsule (Fish Oil) rivaroxaban 20 mg tablet (Xarelto) 20 mg PO QPMWITHMEAL 08/28/24 08/28/24 History New Prescriptions to Start Prescriptions: Allergies Allergy/AdvReac Type Severity Reaction Status Date / Time No Known Allergies Allergy Verified 12/18/23 15:14 Discharge Plan Disposition Patient Disposition: Xfer Short-Term Hosp Condition: Fair Discharge Order Discharge Orders: Discharge Order (Routine); Ordered 08/28/24 Ordered By: Roney Yeh Follow up Plan Prescriptions/Medication Reconciliation: No Action meloxicam 15 mg tablet 15 mg PO DAILY metformin 500 mg tablet extended release 24 hr 500 mg PO HS atorvastatin 20 mg tablet 20 mg PO HS metoprolol succinate 100 mg tablet extended release 24 hr 100 mg PO HS Rx Instructions: Pt states he only takes 1 pill a day at bedtime lisinopril 10 mg tablet 10 mg PO HS omega [id number]-[id number]-fish oil [Fish Oil] 1,000 (120-180) mg Capsule 1 cap PO HS doxycycline monohydrate 100 mg capsule 100 mg PO BID albuterol sulfate 90 mcg/actuation HFA aerosol inhaler 2 puff INHALATION Q4HP PRN (Reason: Shortness Of Breath) Patient Comments: INHALE 1 TO 2 PUFFS BY MOUTH EVERY 4 TO 6 HOURS NEEDED FOR WHEEZING Xarelto 20 mg tablet 20 mg PO QPMWITHMEAL Problem Reconciliation Problems Reviewed?: Yes Patient Discharge Instructions Patient Instructions: DI for Surgical Site Infection, DI for Respiratory Failure, DI for Pleural Effusion Print Language: Swiss Providers Primary Care Provider: Mak Mckeon Admit Provider: Roney Yeh Attending Provider: Roney Yeh
[2024-08-28] MEDS: ATORVASTATIN 40MG TABLET 40 MG PO (21:26)
[2024-08-28 21:35] LABS: POC Glucose,Bedside 116 (70-110)
--- NOTE | 2024-08-28 22:06 | PC.NURSE ---
2115:Pt. to be transferred to [facility] going to [facility] room [id number]. Report called to Gonzalez JIMENEZ . Pt. is agreeable to transfer. Pt. to be transferred via EMS. EMS delayed due to other previous scheduled transfers. will be about 2-3 hours before transfer can take place. will continue to monitor patient.
[2024-08-29] VITALS: BP 161/69; PULSE 68; PULSE 70; RESP 16; RESP 22; TEMP 36.7; TEMP 36.8; O2SAT 97; O2SAT 98
--- NOTE | 2024-08-29 00:59 | PC.NURSE ---
0045: Pt left with EMS for transfer to [facility]..
== END 2024-08-29 00:45 | disposition short-term general hospital (02) | DRG 280 ==
LOC: ER 05:35 → 2ND 06:19
PROVIDERS: Internal Medicine; Admitting Provider Student in an Organized Health Care Education/Training Program; Emergency Provider Emergency Medicine; PCP Nurse Practitioner Family; Visit Provider Student in an Organized Health Care Education/Training Program
PROC: 4A023N7 Measurement of Cardiac Sampling and Pressure, Left Heart, Percutaneous Approach (ICD-10-PCS; CPT 93452; principal; 2024-08-28 11:30)
DX: T82.857A Stenosis of other cardiac prosthetic devices, implants and grafts, initial encounter (principal); I50.31 Acute diastolic (congestive) heart failure; I21.A1 Myocardial infarction type 2; J96.01 Acute respiratory failure with hypoxia; Z68.41 Body mass index [BMI] 40.0-44.9, adult; Y71.2 Prosthetic and other implants, materials and accessory cardiovascular devices associated with adverse incidents; I11.0 Hypertensive heart disease with heart failure; I35.0 Nonrheumatic aortic (valve) stenosis; G47.33 Obstructive sleep apnea (adult) (pediatric); E66.01 Morbid (severe) obesity due to excess calories; E78.5 Hyperlipidemia, unspecified; E11.9 Type 2 diabetes mellitus without complications; Z79.84 Long term (current) use of oral hypoglycemic drugs; Z79.01 Long term (current) use of anticoagulants; Z79.85 Long-term (current) use of injectable non-insulin antidiabetic drugs; Z79.899 Other long term (current) drug therapy; Z95.2 Presence of prosthetic heart valve
CPT/HCPCS: 36415; 71046; 71275; 80053; 80061; 82803; 82962; 83036; 83880; 84443; 84484; 85025; 87633; 93005; 93306; 99152; 99153; C1725; C1760; C1769; J1200; J1644; J1938; J2003; J2250; J3010; J7040; Q9957; Q9967